=== PATIENT | female | born 1935 | race Caucasian/White ===

== ENCOUNTER → 2024-10-05 | Outpatient (CLI) | payer MEDICARE, BC, SELFPAY ==
[2024-10-05 12:32] LABS: Collection Type, Urine Clean Catch
[2024-10-05 13:59] LABS: Basophils % (Auto) 1 % (0-2.5); Eosinophils # (Auto) 0.1 Thou/mm3 (0.0-0.5); Eosinophils % (Auto) 2 % (0-10); Hematocrit 42.8 % (36.0-46.0); Hemoglobin 13.6 g/dL (12.0-16.0); Immature Granulocytes % (Auto) 0 % (0-0); Immature Granulocytes Auto 0.01 Thou/mm3 (0.00-0.00); Lymphocytes # (Auto) 1.6 Thou/mm3 (1.0-4.8); Lymphocytes % (Auto) 31 % (10-50); Mean Corpuscular HGB Conc 31.8 g/dl (31.0-37.0); Mean Corpuscular Hemoglobin 27.8 pg (25.0-35.0); Mean Corpuscular Volume 88 fL (80-100); Monocytes # (Auto) 0.5 Thou/mm3 (0.0-0.8); Monocytes % (Auto) 9 % (0-12); Neutrophils % (Auto) 57 % (37-80); Nucleated Red Blood Cell % 0 /100 WBC (0); Platelet Count 191 Thou/mm3 (140-440); RDW Standard Deviation 41.8 fL (36.4-46.3); Red Blood Count 4.89 Miln/mm3 (4.00-5.20); White Blood Count 5.2 Thou/mm3 (3.6-11.0)
[2024-10-05 14:02] LABS: Bilirubin,Urine Negative (Negative); Blood,Urine Negative (Negative); Clarity,Urine Clear (Clear/Hazy); Color,Urine Lt-Yellow (Lt Yel-Yel); Culture Indicated,Urine Not Indicated; Glucose, Urine Negative (Negative); Ketones,Urine Trace (Negative); Leukocyte Esterase,Urine Negative (Negative); Nitrite,Urine Negative (Negative); PH,Urine 6.5 (5.0-7.0); Protein,Urine Negative (Neg - Trace); RBC,Urine 3 /hpf (0-3); Specific Gravity,Urine 1.018 (1.001-1.035); Squamous Epithelial Cell,Urine < 1 /hpf (0-5); Urobilinogen,Urine Negative mg/dL (0.0-1.0); WBC,Urine 1 /hpf (0-5)
[2024-10-05 14:12] LABS: Vitamin B12 273 pg/mL (211-911)
[2024-10-05 14:21] LABS: Alanine Aminotransferase 18 U/L (10-49); Albumin, Serum 4.4 gm/dL (3.4-4.8); Albumin/Globulin Ratio 1.8 (1.2-2.2); Alkaline Phosphatase 84 U/L (46-116); Anion Gap 5 (7-16); Aspartate Amino Transferase 27 U/L (0-34); BUN/Creatinine Ratio 15 Ratio (12-20); Bilirubin,Total 0.8 mg/dL (0.3-1.2); Blood Urea Nitrogen 17 mg/dL (9-23); Carbon Dioxide 30.7 mMol/L (20.0-31.0); Cardiac Risk Estimate 1.8 RATIO (3.7-5.6); Chloride 102 mMol/L (98-107); Cholesterol 132 mg/dL (132-200); Creatinine (Component) 1.1 mg/dL (0.6-1.3); Globulin 2.5 gm/dL (2.3-3.5); Glucose 87 mg/dL (74-106); HDL Cholesterol 72 mg/dL (40-60); LDL Cholesterol,Calculated 48 mg/dL (0-130); Osmolality,Calculated 276 (275-295); Phosphorous 3.6 mg/dL (2.4-5.1); Potassium 4.9 mMol/L (3.4-5.1); Sodium 138 mMol/L (136-145); Thyroid Stimulating Hormone 2.32 uIU/mL (0.55-4.78); Total Protein 6.9 gm/dL (5.7-8.2); Triglycerides 62 mg/dL (30-150); eGFR 49 See Note
[2024-10-05 15:24] LABS: Glucose Estimated Average 105 mg/dL (80-131); Hemoglobin A1C 5.3 % Hgb (4.8-6.0)
== END | disposition home or self-care (01) ==
LOC: COPL 11:29
PROVIDERS: PCP Registered Nurse; Referring Provider Internal Medicine; Visit Provider Internal Medicine
DX: Z00.00 Encounter for general adult medical examination without abnormal findings (principal); I12.9 Hypertensive chronic kidney disease with stage 1 through stage 4 chronic kidney disease, or unspecified chronic kidney disease; N18.31 Chronic kidney disease, stage 3a
CPT/HCPCS: 36415; 80053; 80061; 81001; 82306; 82607; 83036; 84100; 84443; 85025

== ENCOUNTER → 2025-01-25 | Outpatient (CLI) | payer MEDICARE, BC, SELFPAY ==
[2025-01-25 13:14] LABS: Albumin, Serum 4.2 gm/dL (3.4-4.8); Anion Gap 7 (7-16); BUN/Creatinine Ratio 18 Ratio (12-20); Blood Urea Nitrogen 18 mg/dL (9-23); Calcium 9.6 mg/dL (8.3-10.6); Calcium (Corrected) 9.6 mg/dL (8.5-10.1); Carbon Dioxide 29.1 mMol/L (20.0-31.0); Chloride 103 mMol/L (98-107); Glucose 93 mg/dL (74-106); Osmolality,Calculated 279 (275-295); Phosphorous 3.3 mg/dL (2.4-5.1); Potassium 4.7 mMol/L (3.4-5.1); Sodium 139 mMol/L (136-145); eGFR 54 See Note
== END | disposition home or self-care (01) ==
PROVIDERS: PCP Family Medicine; Referring Provider Internal Medicine; Visit Provider Internal Medicine
DX: I12.9 Hypertensive chronic kidney disease with stage 1 through stage 4 chronic kidney disease, or unspecified chronic kidney disease (principal); N18.31 Chronic kidney disease, stage 3a
CPT/HCPCS: 36415; 80069

== ENCOUNTER 2025-04-26 06:17 | Inpatient (IN) | payer MEDICARE, BC, SELFPAY ==
[2025-04-26] VITALS (13 sets, daily range): BP systolic 123–182; BP diastolic 67–95; PULSE 59–111; RESP 16–21; TEMP 36.3–37; O2SAT 88–99; BMI 24.5; BMI 25.3
--- NOTE | 2025-04-26 06:59 | XR_ITS ---
Examination: CT pelvis without intravenous contrast. 2-D sagittal and coronal reconstructions. Date and time of exam:April 26, 2025 0856 hours INDICATIONS: Patient fell today with injury to both hips, bilateral hip pain CTDI: vol (mGy) :6.36 DLP: (mGycm) : 235 Technique: Multiple 3 mm axial sections of the pelvis have been obtained with the 64 slice high resolution scanner. 2-D sagittal and coronal reconstructions. Low dose protocols were performed. One or more of the following dose reduction techniques were used; automated exposure control, adjustment of the mA and/or KV according to patient size, use of iterative reconstruction technique. Findings: Prominent osteopenia Sacral segments intact Iliac bones acetabular regions intact Anterior rami intact Acute mildly impacted left subcapital hip fracture Fracture lines are also evident involving the lower femoral neck and partly intertrochanteric region, axial image 67 Right hip intact No pelvic hematoma Urinary bladder intact IMPRESSION: Complex left hip fracture, left subcapital but also involving the lower femoral neck and partly intertrochanteric
--- NOTE | 2025-04-26 06:59 | EKG_ITS ---
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
--- NOTE | 2025-04-26 06:59 | XR_ITS ---
Examination: AP chest single view Technique one AP portable semiupright chest single view Date and time: April 26, 2025 0739 hours Comparison January 14, 2024 INDICATIONS: Coughing shortness of breath today. FINDINGS: Mild enlargement left ventricle Mild vascular congestion. No lobar pneumonia or pulmonary edema Prominent osteopenia IMPRESSION: Mild enlargement cardiac contour. Mild vascular congestion
[2025-04-26] MEDS: SODIUM CHLORIDE 0.9% 1000 ML 1,000 ML 100 ML IV (07:30)
[2025-04-26] MEDS: ONDANSETRON INJ 2 MG/ML INJ 2 ML 4 MG IVP ×2 (07:30→11:18)
[2025-04-26] MEDS: MORPHINE SULF INJ 10 MG/ML VIAL 4 MG IVP (07:30)
--- NOTE | 2025-04-26 07:42 | EDNOTE_ITS ---
ED Fall Injury RME/HPI General Chief Complaint: Fall Stated Complaint: FALL Time Seen by Provider: 04/26/25 06:27 Arrival date/time: 04/26/25 06:17 Limitations: no limitations RME / HPI RME / HPI Narrative: 89 year old female with a known history of mitral and aortic valve regurgitation and hypertension presents to the ED BIBA from home for evaluation of left hip pain following a fall earlier this morning. The patient reports that she was walking outside on gravel when her large dog ran between her legs, causing her to lose balance and fall onto her left side. Immediately experienced pain localized to the left groin and hip, which has been exacerbated with any movement. Denies any other complaints, injuries, or neurological symptoms. Denies head trauma, LOC, dizziness, or weakness. Related Data Home Medications ?Medication ?Instructions ?Recorded ?Confirmed gabapentin 300 mg tablet,extended 600 mg PO QPM 07/20/23 release 24 hr benazepril 20 mg tablet 20 mg PO QDAY 10/19/2207/20 ergocalciferol (vitamin D2) 1,250 50,000 unit PO QMONT H 10/19/22 07/20/23 mcg (50,000 unit) capsule vitamin B complex-vitamin C-folic 1 tab PO QDAY 07/20/23 acid 0.8 mg tablet (Lolly-Sherlyn) metoprolol tartrate 25 mg tablet 25 mg PO QDAY 3 07/20/23 Allergies Allergy/AdvReac Type Severity Reaction Status Date / Time Penicillins Allergy Severe Swelling Verified 11/21/22 09:00 of Lip/Tongue/Throat Review of Systems Review of Systems Systems Reviewed: All systems reviewed, normal except as documented Past Medical History Past Medical History CARDIAC: Positive Cardiac Disorders (LEAKY VALVE), Valvular Heart Disease and Hypertension (TAKES MED) GENITOURINARY: Positive Renal Disease REPRODUCTIVE: Positive Previous Pregnancies (X3) ENT: Positive Cataracts (RIGHT), Retinal Detachment (RIGHT EYE) and Macular Degeneration (RIGHT EYE) OTHER HISTORY: Positive Shingles (11/03), Chicken Pox, Measles and Mumps Family History FAMILY HISTORY: Positive Family Gastrointestinal Problems (FATHER), Family Cancer (SISTER (UTERINE)) and Family Surgery (MOTHER,FATHER) Surgical History SURGICAL: Positive Eye Surgery (RIGHT) and Tonsillectomy Social History SMOKING STATUS: Never smoker ED Exam General Limitations: Present no limitations General appearance: Present alert and other (appears to be in pain ) Head Head exam: Present atraumatic, normocephalic and normal inspection Eye Eye exam: Present normal appearance, PERRL and EOMI ENT ENT exam: Present normal exam, normal oropharynx and mucous membranes moist Neck Neck exam: Present normal inspection, full ROM and trachea midline Chest Chest inspection: Present normal inspection and symmetric chest wall rise Respiratory Respiratory exam: Present normal lung sounds bilaterally Cardiovascular Cardiovascular exam: Present regular rate, normal rhythm and normal heart sounds Abdominal Exam Abdominal exam: Present soft and normal bowel sounds Extremities Exam Extremities exam: Present other (left inguinal pain on palpation, cannot rotate externally, no shortening of the leg ) Back Exam Back exam: Present normal inspection and full ROM Neurological Exam Neurological exam: Present alert, oriented X3 and CN II-XII intact Psychiatric Psychiatric exam: Present normal affect and normal mood Skin Skin exam: Present warm, dry, intact and normal color Course Quality Measures none Orders Category Date Time Status COVID-19 Screening Questionnaire NOW Care 04/26/25 10:58 Active Teacher Education Director NOW Care 04/26/25 06:59 Completed Teacher Education Director Q4H START 00 Care 04/26/25 06:40 Active Continuous Pulse Oximetry NOW Care 04/26/25 06:59 Completed Decision to Admit X1 Care 04/26/25 10:57 Active EKG (ED ONLY) *Do not use* NOW Care 04/26/25 06:59 Completed In and Out Catheter X1 Care 04/26/25 07:49 Completed Insert IV NOW Care 04/26/25 06:59 Active Wound Care [Wound Care] NOW Care 04/26/25 06:41 Active Consult to Orthopedic Stat Cons 04/26/25 10:[address] pelvis wo con Stat Exams 04/26/25 06:59 Completed EKG (ED Only) Stat Exams 04/26/25 06:59 Draft XR chest 1V portable Stat Exams 04/26/25 06:59 Completed XR hip LT w pelvis 2-3V Stat Exams 04/26/25 10:51 Ordered CBC Stat Lab 04/26/25 07:55 Completed Comprehensive Metabolic Panel Stat Lab 04/26/25 08:41 Completed Partial Thromboplastin Time Stat Lab 04/26/25 08:41 Completed Prothrombin Time with INR Stat Lab 04/26/25 08:41 Completed Troponin I Stat Lab 04/26/25 08:41 Completed Urinalysis Stat Lab 04/26/25 08:00 Completed Morphine Inj Med 04/26/25 06:59 Discontinued 4 mg IVP X1 ONE Ondansetron Inj [Zofran Inj] Med 04/26/25 06:59 Discontinued 4 mg IVP X1 ONE Sodium Chloride 0.9% 1000 ml [Ns] 1,000 ml Med 04/26/25 06:59 Active IV 100 mls/hr Oxygen Delivery NOW RT 04/26/25 10:21 Active Vital Signs Vital signs: Vital Signs Temperature 98.6 F 04/26/25 06:39 Pulse Rate 62 04/26/25 06:39 Respiratory Rate 18 04/26/25 06:39 Blood Pressure 182/86 H 04/26/25 06:39 Pulse Oximetry (%) 94 L 04/26/25 06:39 Oxygen Delivery Method Room Air 04/26/25 06:39 Pulse ox is 94% on room air which is adequate. Fall MDM Narrative MDM Narrative:: Brigitte Russell am scribing for and in the presence of Dr. Hines. Patient data External records reviewed:: [facility] previous records (I reviewed H&P on 11/21/2022 ) and EMS form Clinical information provided by:: patient and EMS Social determinants that could affect healthcare access:: none Patient has the following chronic illnesses:: HTN, mitral and aortic valve regurgitation How is presenting disease/condition affected by chronic disease/condition?: uneffected by Evaluation data The following diagnostics were reviewed and interpreted by me:: lab results, radiology exam(s) and EKG tracing(s) (EKG 04/26/2025 @ 07:15 AM. Sinus bradycardia with occasional PVC's, left axis deviation, minimal ST depression, HR 59, WA 164ms, QRS 106ms, QT/QTc 419/419ms. ) Lab and/or radiology exams considered but not ordered:: None Interpretation Summary: Ordering Physician: Austin Hines MD Date of Service: 04/26/25 Procedure(s): XR chest 1V portable Accession Number(s): [id number] cc: Austin Hines MD; Stephen Lance MD; Omar Yang MD~ Examination: AP chest single view Technique one AP portable semiupright chest single view Date and time: April 26, 2025 0739 hours Comparison January 14, 2024 INDICATIONS: Coughing shortness of breath today. FINDINGS: Mild enlargement left ventricle Mild vascular congestion. No lobar pneumonia or pulmonary edema Prominent osteopenia IMPRESSION: Mild enlargement cardiac contour. Mild vascular congestion Dictated By: Stephen Lance MD Signed By: <Electronically signed by Stephen Lance MD in OV> 04/26/25 0905 Ordering Physician: Austin Hines MD Date of Service: 04/26/25 Procedure(s): CT pelvis wo [facility] Accession Number(s): [id number] cc: Austin Hines MD; Stephen Lance MD; Omar Yang MD~ Examination: CT pelvis without intravenous contrast. 2-D sagittal and coronal reconstructions. Date and time of exam:April 26, 2025 0856 hours INDICATIONS: Patient fell today with injury to both hips, bilateral hip pain CTDI: vol (mGy) :6.36 DLP: (mGycm) : 235 Technique: Multiple 3 mm axial sections of the pelvis have been obtained with the 64 slice high resolution scanner. 2-D sagittal and coronal reconstructions. Low dose protocols were performed. One or more of the following dose reduction techniques were used; automated exposure control, adjustment of the mA and/or KV according to patient size, use of iterative reconstruction technique. Findings: Prominent osteopenia Sacral segments intact Iliac bones acetabular regions intact Anterior rami intact Acute mildly impacted left subcapital hip fracture Fracture lines are also evident involving the lower femoral neck and partly intertrochanteric region, axial image 67 Right hip intact No pelvic hematoma Urinary bladder intact IMPRESSION: Complex left hip fracture, left subcapital but also involving the lower femoral neck and partly intertrochanteric Dictated By: Stephen Lance MD Signed By: <Electronically signed by Stephen Lance MD in OV> 04/26/25 0918 Medications / Prescriptions Medications or Prescriptions considered but not ordered:: None Medication administrations:: Medication Administration History Sodium Chloride (Ns) 1,000 mls @ 100 mls/hr IV .Q10H ONE Stop: 04/26/25 16:58 Last Admin: 04/26/25 07:30 Dose: 100 mls/hr Documented By: LESLEY Discontinued Medications Morphine Sulfate (Morphine Sulf Inj 10 Mg/Ml Vial) 4 mg IVP X1 ONE Stop: 04/26/25 07:00 Last Admin: 04/26/25 07:30 Dose: 4 mg Documented By: LESLEY Ondansetron HCl (Ondansetron Inj 2 Mg/Ml Inj 2 Ml) 4 mg IVP X1 ONE; Protocol Stop: 04/26/25 07:00 Last Admin: 04/26/25 07:30 Dose: 4 mg Documented By: LESLEY See above Consultations Consultation(s) initiated? (list below): Yes Consultation #1 (Physician, Specialty, Details): I spoke with ortho Dr. Anders. Discussed patient?s HPI, PMHx, lab and radiology results. Treatment plan was discussed. Agrees to consult. Time: 10:35 Consultation #2 (Physician, Specialty, Details): I spoke with resident working with Dr. Ordoñez. Discussed patients PMHx, HPI, ED course, exam findings, labs, and radiology results. The hospitalist agree to accept the patient for admission. Time: 10:56 Diagnosis Fall Differential Diagnosis: syncope and other (hip dislocation, hip fracture, pelvic fracture ) Most likely diagnosis given after review of the tests above:: Left hip fracture Admission Indicated Admission indicated?: indicated Admission Request Was there a request for admission?: Yes Admission Attestation Admission request attestation: Discussed case with [] from Hospitalist service regarding admission. Discussed patients ED course, exam findings, labs, and radiology results. The Hospitalist [agrees,declines] to accept the patient for admission. Disposition Plan Disposition Plan: Admit Discharge Plan Plan Patient Disposition: Admit Acute Care w/in Hospital Prescriptions/Referrals Prescriptions/Med Rec: No Action gabapentin 300 mg Tablet Extended Release 24 Hr 600 mg PO QPM benazepril 20 mg tablet 20 mg PO QDAY Patient Comments: TAKE 1 TABLET BY MOUTH EVERY DAY Lolly-Sherlyn 0.8 mg tablet 1 tab PO QDAY Patient Comments: TAKE 1 TABLET BY MOUTH EVERY DAY ergocalciferol (vitamin D2) 1,250 mcg (50,000 unit) capsule 50,000 unit PO QMONTH Patient Comments: TAKE 1 CAPSULE BY MOUTH ONCE A MONTH metoprolol tartrate 25 mg Tablet 25 mg PO QDAY Referrals: Omar Yang MD [Primary Care Provider] - In 1 week Problem List Clinical Impression: Fracture of left hip Patient/Caregiver Discharge Instructions Print Language: Uzbek Stand Alone Forms: Mari Award Info., Patient Portal Info Letter
[2025-04-26 08:09] LABS: Collection Type, Urine Clean Catch
[2025-04-26 08:30] LABS: Basophils % (Auto) 0 % (0-2.5); Eosinophils # (Auto) 0.1 Thou/mm3 (0.0-0.5); Eosinophils % (Auto) 1 % (0-10); Hematocrit 41.9 % (36.0-46.0); Hemoglobin 13.8 g/dL (12.0-16.0); Immature Granulocytes % (Auto) 1 % (0-0); Immature Granulocytes Auto 0.06 Thou/mm3 (0.00-0.00); Lymphocytes # (Auto) 1.5 Thou/mm3 (1.0-4.8); Lymphocytes % (Auto) 19 % (10-50); Mean Corpuscular HGB Conc 32.9 g/dl (31.0-37.0); Mean Corpuscular Hemoglobin 28.1 pg (25.0-35.0); Mean Corpuscular Volume 85 fL (80-100); Monocytes # (Auto) 0.5 Thou/mm3 (0.0-0.8); Monocytes % (Auto) 6 % (0-12); Neutrophils # (Auto) 5.7 Thou/mm3 (1.8-7.7); Neutrophils % (Auto) 73 % (37-80); Nucleated Red Blood Cell % 0 /100 WBC (0); Platelet Count 146 Thou/mm3 (140-440); RDW Standard Deviation 41.2 fL (36.4-46.3); Red Blood Count 4.91 Miln/mm3 (4.00-5.20); White Blood Count 7.8 Thou/mm3 (3.6-11.0)
[2025-04-26 09:02] LABS: Bilirubin,Urine Negative (Negative); Blood,Urine Negative (Negative); Clarity,Urine Clear (Clear/Hazy); Color,Urine Colorless (Lt Yel-Yel); Glucose, Urine Negative (Negative); Ketones,Urine Negative (Negative); Leukocyte Esterase,Urine Positive (Negative); Nitrite,Urine Negative (Negative); PH,Urine 6.5 (5.0-7.0); Protein,Urine Negative (Neg - Trace); RBC,Urine 5 /hpf (0-3); Specific Gravity,Urine 1.005 (1.001-1.035); Squamous Epithelial Cell,Urine 2 /hpf (0-5); Transitional Epi Cells,Urine 2 /hpf (0-5); Urobilinogen,Urine Negative mg/dL (0.0-1.0); WBC,Urine 6 /hpf (0-5)
[2025-04-26 09:03] LABS: INR 1.1 (0.9-1.3); Partial Thromboplastin Time 29.3 Seconds (22.0-36.0); Prothrombin Time 11.6 Seconds (9.0-12.2)
[2025-04-26 09:08] LABS: Alanine Aminotransferase 20 U/L (10-49); Albumin, Serum 4.1 gm/dL (3.4-4.8); Albumin/Globulin Ratio 2.1 (1.2-2.2); Alkaline Phosphatase 74 U/L (46-116); Anion Gap 10 (7-16); BUN/Creatinine Ratio 22 Ratio (12-20); Bilirubin,Total 0.8 mg/dL (0.3-1.2); Blood Urea Nitrogen 20 mg/dL (9-23); Calcium 9.3 mg/dL (8.3-10.6); Calcium (Corrected) 9.3 mg/dL (8.5-10.1); Carbon Dioxide 27.5 mMol/L (20.0-31.0); Chloride 103 mMol/L (98-107); Creatinine (Component) 0.9 mg/dL (0.6-1.3); Estimated Creatinine Clearance 35.7 mL/min (>60); Glucose 98 mg/dL (74-106); Osmolality,Calculated 282 (275-295); Potassium 3.7 mMol/L (3.4-5.1); Sodium 140 mMol/L (136-145); Total Protein 6.1 gm/dL (5.7-8.2); Troponin I < 0.020 ng/mL (0.0-0.045); eGFR > 60 See Note
--- NOTE | 2025-04-26 10:51 | XR_ITS ---
Examination:Left hip AP, lateral, AP pelvis 3 views Technique: Hip AP lateral, AP pelvis, 3 views Exam date and time:April 26, 2025 1117 hours INDICATIONS: Patient fell today with injury to left hip, left hip pain FINDINGS: Prominent osteopenia Acute left subcapital hip fracture, please see the CT pelvis report this a.m. IMPRESSION: Acute left subcapital hip fracture, please see the CT pelvis report this morning.
[2025-04-26] MEDS: HYDROmorphone INJ 2 MG/ML VIAL 0.5 MG IVP ×3 (11:19→20:06)
--- NOTE | 2025-04-26 11:49 | PD.RESHP ---
Documentation for date of: 04/26/25 [facility] History of Present Illness Chief complaint: Fall History of present illness: Ms. Mcdaniel is a 89-year-old female with past medical history of hypertension, hyperlipidemia, mild to moderate mitral valve and aortic valve regurgitation (follows Dr Brett Pereyra) and neuropathic pain who presented to [facility] emergency department with a chief complaint of mechanical fall. Patient's [id number] at bedside assisting in providing history, according to the patient she had a fall earlier this morning, reports she was walking outside on gravel when her large dog ran between her legs causing her to lose balance and fall onto her left side. Patient immediately experienced pain localized to the left groin and hip which exacerbated with movement. Patient currently complains of 10/10 pain left hip exacerbated by movement. Patient denies any dizziness, presyncopal symptoms prior to the fall and loss of consciousness. Patient reports following outpatient with primary care physician Dr. 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 Aldana for kidney function monitoring. Patient otherwise has no current complaints, denies any head trauma. ED Course: ED Vitals: On presentation in ED blood pressure 182/86, heart rate 62, respiratory rate 18, temp 98.6, O2 sat 94 on room air ED Labs: ED labs pertinent for creatinine clearance 35.7, globulin 2.0. Urinalysis shows leukocyte esterase positive, RBC 5, WBC 6 ED Imaging: Chest x-ray in ED shows mild enlargement cardiac contour, mild vascular congestion. Pelvis CT shows complex left hip fracture, left subcapital but also involving lower femoral neck and partly intertrochanteric. Hip and pelvis x-ray shows acute left subcapital hip fracture ED Treatment: Patient was given maintenance fluids sodium chloride, morphine 4 mg x 1, Zofran 4 mg x 2, Dilaudid 0.5 mg x 1 in the emergency department Review of Systems Review of Systems Narrative Review of Systems: ROS: -CONSTITUTIONAL: Denies weight loss, fever and chills. -HEENT: Denies changes in vision and hearing. -RESPIRATORY: Denies SOB and cough. -CV: Denies palpitations and Chest Pain. -GI: Denies abdominal pain, nausea, vomiting,constipation and diarrhea. -: Denies dysuria and urinary frequency. -MSK: Left hip pain. -SKIN: Denies rash and pruritus. -NEUROLOGICAL: Denies headache and syncope. -PSYCHIATRIC: Denies recent changes in mood. Denies anxiety and depression. Past Medical History Past Medical History Comments PMH COMMENT: PMH: Positive for hypertension, hyperlipidemia, mild to moderate mitral valve and aortic valve regurgitation (follows Dr Brett Pereyra) and neuropathic pain PSHx: Positive for angiogram, Right ear mass resection and right leg surgery. 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 Conversational and non-toxic appearing. HEENT: Normocephalic, atraumatic, mucous membranes moist. Heart: Regular rate and rhythm, positive murmur in aortic area. Lungs: Clear to auscultation with no wheezing or crackles. Abdomen: Soft, nondistended, nontender, positive bowel sounds. ?No guarding or rebound tenderness. Neurologic: Alert and oriented x3, no gross neurological deficit, and patient able to move all 4 extremities. Extremities: No edema. Left extremity shorter than right, externally rotated. Skin: No rash or ecchymoses. Results: Labs 04/26/25 07:55 04/26/25 08:41 Labs: Short CBC 04/26/25 Range/Units 07:55 WBC 7.8 (3.6-11.0) Thou/mm3 Hgb 13.8 (12.0-16.0) g/dL Hct 41.9 (36.0-46.0) % Plt Count 146 (140-440) Thou/mm3 BMP 04/26/25 08:41 Sodium 140 Potassium 3.7 Chloride 103 Carbon Dioxide 27.5 BUN 20 Creatinine 0.9 Glucose 98 Calcium 9.3 Cardiac Enzymes 04/26/25 Range/Units 08:41 Troponin I < 0.020 (0.0-0.045) ng/mL Liver Function 04/26/25 Range/Units 08:41 Total Bilirubin 0.8 (0.3-1.2) mg/dL ALT 20 (10-49) U/L Alkaline Phosphatase 74 (46-116) U/L Albumin 4.1 (3.4-4.8) gm/dL Urine 04/26/25 Range/Units 08:00 Urine Color Colorless A (Lt Yel-Yel) Urine Clarity Clear (Clear/Hazy) Urine pH 6.5 (5.0-7.0) Ur Specific [place] 1.005 (1.001-1.035) Urine Protein Negative (Neg - Trace) Urine Glucose (UA) Negative (Negative) Quality Measures Quality Measures none Advance care planning discussed with:: patient Medications Home Medications and Allergies Home Medications ?Medication ?Instructions ?Recorded ?Confirmed ?Type gabapentin 300 mg tablet,extended 600 mg PO QPM 10/31/18 04/26/25 History release 24 hr vitamin B complex-vitamin C-folic 1 tab PO QDAY 10/19/22 04/26/25 History acid 0.8 mg tablet (Lolly-Sherlyn) Allergies Allergy/AdvReac Type Severity Reaction Status Date / Time Penicillins Allergy Severe Swelling Verified 11/21/22 09:00 of Lip/Tongue/Throat Visit Medications Acetaminophen (Acetaminophen 325 Mg Tablet) 650 mg PO Q6H PRN PRN Reason: Pain (1-3) & Fever >100.4 Stop: 05/26/25 11:39 Hydrocodone Bitart/Acetaminophen (Hydrocodone/Apap 5/325 Tablet) 1 tab PO Q4HR PRN PRN Reason: PAIN SCALE 4-6 (Moderate Stop: 05/01/25 11:39 Gabapentin (Gabapentin 300 Mg Capsule) 300 mg PO HS ELI Stop: 05/26/25 20:59 Heparin Sodium (Porcine) (Heparin Sod Inj 5000 Unit/Ml Vial) 5,000 unit SC Q12H ELI Stop: 05/10/25 11:44 Hydromorphone HCl (Hydromorphone Inj 2 Mg/Ml Vial) 0.5 mg IVP Q4H PRN PRN Reason: PAIN SCALE 7-10 (Severe Stop: 05/01/25 11:39 Ondansetron HCl (Ondansetron Inj 2 Mg/Ml Inj 2 Ml) 4 mg IVP Q6H PRN; Protocol PRN Reason: NAUSEA OR VOMITING Stop: 05/26/25 11:39 Sennosides (Senna Tablet) 1 tab PO QDAY ELI; Protocol Stop: 05/27/25 08:59 Discontinued Medications Hydromorphone HCl (Hydromorphone Inj 2 Mg/Ml Vial) 0.5 mg IVP X1 ONE Stop: 04/26/25 11:10 Last Admin: 04/26/25 11:19 Dose: 0.5 mg Sodium Chloride (Ns) 1,000 mls @ 100 mls/hr IV .Q10H ONE Stop: 04/26/25 16:58 Last Admin: 04/26/25 07:30 Dose: 100 mls/hr Morphine Sulfate (Morphine Sulf Inj 10 Mg/Ml Vial) 4 mg IVP X1 ONE Stop: 04/26/25 07:00 Last Admin: 04/26/25 07:30 Dose: 4 mg Ondansetron HCl (Ondansetron Inj 2 Mg/Ml Inj 2 Ml) 4 mg IVP X1 ONE; Protocol Stop: 04/26/25 07:00 Last Admin: 04/26/25 07:30 Dose: 4 mg Ondansetron HCl (Ondansetron Inj 2 Mg/Ml Inj 2 Ml) 4 mg IVP X1 ONE; Protocol Stop: 04/26/25 11:10 Last Admin: 04/26/25 11:18 Dose: 4 mg Assessment & Plan Plan Assessment and plan: Summary: Ms. Mcdaniel is a 89-year-old female with past medical history of hypertension, hyperlipidemia, mild to moderate mitral valve and aortic valve regurgitation (follows Dr Brett Pereyra) and neuropathic pain who presented to [facility] emergency department with a chief complaint of mechanical fall. Patient admitted for further management of left hip fracture. #Left subcapital femoral neck fracture #Ground-level mechanical fall Patient reports she was walking outside on gravel when her large dog ran between her legs causing her to lose balance and fall onto her left side. Patient denies any dizziness, weakness, loss of consciousness and head trauma. Complains of left hip pain, Pelvis CT shows complex left hip fracture, left subcapital but also involving lower femoral neck and partly intertrochanteric. Hip and pelvis x-ray shows acute left subcapital hip fracture. RCRI score 1 point, chest x-ray findings show pulmonary vascularity redistribution, 6% risk of major cardiac event. METs greater than 4 Plan: - Pain management, Tylenol/[place]/Dilaudid as needed for pain - Consulted orthopedics, appreciate recommendations - Cardiology consulted for cardiac clearance, ordered echocardiogram - Zofran as needed for nausea/vomiting - Follow CBC CMP in a.m. #Hypertension #Hyperlipidemia #Mild to moderate mitral valve/aortic valve regurgitation Per chart review patient with history of hypertension hyperlipidemia, not on any medication for management. Follows Dr Brett Pereyra. Cardiac Cath. report from January 2023 shows minimal plaque of 10 to 20% stenosis in proximal RCA. Left ventricular ejection fraction EF 60 to 65%, mild elevation of LVEDP Plan: - Maintain adequate pain control - Cardiology consulted for cardiac clearance - Ordered echocardiogram # Chronic neuropathic pain Patient reports taking gabapentin 600 mg every at night, pending med reconciliation - Started on gabapentin 300 mg at bedtime #Prominent osteopenia Noted on CT pelvis, patient will likely supplement from calcium and vitamin D supplementation. Will consider discharging patient on same, recommend DEXA scan outpatient and bisphosphonates. DVT prophylaxis: Heparin every 12 hours GI prophylaxis: Not indicated Diet: Cardiac, vegetarian Lines: Peripheral IV Code status: Full code Case discussed with Attending Dr. Ordoñez. Rigoberto Huggins PGY1 Disclaimer: This note was dictated by speech recognition. Minor errors in api architect may be present due to voice recognition software. Attending Provider Attestation/Addendum I attest that I was physically present for the evaluation, physical examination, lab and imaging review of the patient with the residents. I discussed the case with the residents and agree with the findings and plans of care as documented above. Patient is an 89 years old female with past medical history of hypertension, hyperlipidemia, mild to moderate mitral valve and aortic valve regurgitation and neuropathic pain who presented to the ED following a mechanical fall. She was found to have acute left subcapital hip fracture, complex left hip fracture, lower femoral neck and partially intertrochanteric fracture as per CT pelvis. Vital signs were stable except for hypertension. Lab results were nonconcerning as well. After examination of the patient and review of the clinical data I feel that this patient needs admission to the hospital for further treatment/evaluation of complex left hip fracture, left subcapital hip fracture following a ground-level fall. Orthopedics on board. Deb Ordoñez MD
[2025-04-26] MEDS: HEPARIN SOD INJ 5000 UNIT/ML VIAL SC (12:05)
--- NOTE | 2025-04-26 13:12 | ECHO_ITS ---
Transthoracic Echo Report Ht (in): 61 Wt (lb): 130 Exam Location: Echo Lab Status: Inpatient Preventive Maintenance Engineer: Yoly Jefferson Indications: Procedure Performed: BP: 137 / 77 HR: 109 Technical Quality: Adequate MEASUREMENTS (Male / Female) Normal Values 2D ECHO LV Diastolic Diameter PLAX 4.6 cm 4.2 - 5.9 / 3.9 - 5.3 cm LV Systolic Diameter PLAX 3.3 cm IVS Diastolic Thickness 0.8 cm 0.6 - 1.0 / 0.6 - 0.9 cm LVPW Diastolic Thickness 0.5 cm 0.6 - 1.0 / 0.6 - 0.9 cm LV Relative Wall Thickness 0.3 LVOT Diameter 1.7 cm LA Volume Index 52.6 cm?/m? 16 - 28 cm?/m? Ascending Aorta Diameter 3.0 cm DOPPLER AV Peak Velocity 163.0 cm/s AV Peak Gradient 10.6 mmHg AI Peak Velocity 373.0 cm/s AI Peak Gradient 55.7 mmHg AI Pressure Half Time 545.0 ms LVOT Peak Velocity 107.0 cm/s LVOT Peak Gradient 4.6 mmHg AV Area Cont Eq pk 1.5 cm? MV Area PHT 2.9 cm? Mitral E Point Velocity 60.1 cm/s Mitral A Point Velocity 97.0 cm/s Mitral E to A Ratio 0.6 LV E' Lateral Velocity 10.1 cm/s Mitral E to LV E' Lateral Ratio 6.0 LV E' Septal Velocity 6.3 cm/s Mitral E to LV E' Septal Ratio 9.5 TR Peak Velocity 278.5 cm/s TR Peak Gradient 31.0 mmHg PV Peak Velocity 52.0 cm/s PV Peak Gradient 1.1 mmHg FINDINGS Left Ventricle Normal left ventricular size, wall thickness, systolic function with no obvious regional wall motion abnormalities. Normal left ventricular diastolic filling pattern for age. The ejection fraction is visually estimated at 60 %. Right Ventricle The right ventricle is mildly dilated. Right Ventricular function is normal. The estimated right ventricular systolic pressure 31 mmHg. RAP 10mmHg. Left Atrium The left atrium is mildly dilated. Right Atrium The right atrium is moderately dilated. Atrial Septum The interatrial septum appears normal with no evidence of a shunt. Aorta The aorta is normal by two-dimensional, color flow and Doppler interrogation. Mitral Valve The mitral valve is normal by two-dimensional, color flow and Doppler interrogation. There is mild mitrual regurgitation. Aortic Valve The aortic valve is trileaflet and normal by two-dimensional, color flow and Doppler interrogation. There is mild aortic regurgitation. Tricuspid Valve The tricuspid valve is normal by two-dimensional, color flow and Doppler interrogation. There is moderate tricuspid regurgitation. Pulmonic Valve The pulmonic valve is not well visualized. There is no significant pulmonic valve regurgitation. Vessels The pulmonary artery appears normal. The inferior vena cava pulmonary and hepatic veins appear normal. Pericardium The pericardium is normal by two-dimensional imaging. There is no significant pericardial effusion. CONCLUSIONS Indications: AV Regurgitation preop cardiac clearance for surgery Aortic root is normal in dimension. Aortic valve show evidence of mild calcification thickening normal excursions. There is evidence of mild aortic valve regurgitation. Mild enlargement of the right and left atrium. Normal-sized left ventricle with excellent left ventricular systolic function ejection fraction of 60%. Mild mitral regurgitation. Mild tricuspid regurgitation normal PA pressure. Based on excellent left ventricle function low cardiac risk for surgery. Janey Diamond (Electronically Signed) Final Date: 26 April 2025 17:52
[2025-04-26] MEDS: GABAPENTIN 300 MG CAPSULE PO (21:12)
--- NOTE | 2025-04-26 21:45 | PC.NURSE ---
Per groundwater monitoring technician, Pt had multiple sustained episodes of inverted P-wave and heart rate is fluctuating intermittently from high 50s to low 100s. Checked on patient, asymptomatic, resting comfortably in bed and Pt said she is okay. Dr. Buchanan was made aware. advised to continue to monitor patient.
[2025-04-27] VITALS (10 sets, daily range): BP systolic 107–151; BP diastolic 58–98; PULSE 54–109; RESP 18–22; TEMP 36.2–37.2; O2SAT 96–100
[2025-04-27] MEDS: HYDROmorphone INJ 2 MG/ML VIAL 0.5 MG IVP ×4 (00:36→22:00)
--- NOTE | 2025-04-27 01:06 | ESCONSULT_ITS ---
RE: SUDHIR NIELSON : 1935 DATE OF CONSULTATION: 04/26/2025 CONSULTING PHYSICIAN: Hospitalist. REASON FOR CONSULTATION: Evaluation of the patient for cardiac clearance for hip surgery. CHIEF COMPLAINT: Mechanical fall, left hip fracture. HISTORY: The patient is a 89-year-old female with a past medical history of hypertension, hypercholesterolemia, known to me with history of mild to moderate mitral and aortic regurgitation, negative coronary angiogram in the past, neuropathic pain. Came to the hospital because of chief complaint of mechanical fall, suffered a fracture of the left hip. She was walking on gravel, a large dog ran between her legs, causing her to lose her balance and she fell on the left side where she suffered a major fracture. She complains of left hip or groin pain. No chest pain. The patient has had a history of negative workup including angiogram. There was mild to moderate mitral and aortic regurgitation . REVIEW OF SYSTEMS: Otherwise unremarkable. PHYSICAL EXAMINATION: GENERAL: A well-nourished, pleasant, thin-built female, alert, awake, in no acute distress. VITAL SIGNS: Blood pressure is slightly on the high side, 180/86; pulse 62; respirations 16; temperature normal. HEENT: Head is atraumatic and normocephalic. Eyes normal. ENT normal. NECK: Supple. No JVD. Carotid pulse felt, but no bruit. CHEST: Symmetrical. LUNGS: Decreased breath sounds. No rales. HEART: S1, S2 regular. A 1-2/6 systolic murmur heard at the left sternal border, aortic area. ABDOMEN: Thin and soft. EXTREMITIES: No edema. GENITOURINARY AND RECTAL: Not performed. NEUROLOGIC: Normal. IMPRESSION/ASSESSMENT: 1. Acute fracture of the left hip following mechanical fall. 2. 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 RECOMMENDATIONS: Continue medical management. Echocardiogram was obtained. It showed normal left ventricular function, ejection fraction of 70%. Mitral and aortic regurgitation did not significantly worsen. Hence, will be managed medically for now. DT: 23:48:07 TT: 00:21:00 Ref: [id number] - TID: [id number] MTDD
[2025-04-27 05:18] LABS: Basophils % (Auto) 0 % (0-2.5); Eosinophils # (Auto) 0.1 Thou/mm3 (0.0-0.5); Eosinophils % (Auto) 1 % (0-10); Hematocrit 34.8 % (36.0-46.0); Hemoglobin 11.8 g/dL (12.0-16.0); Immature Granulocytes % (Auto) 0 % (0-0); Immature Granulocytes Auto 0.03 Thou/mm3 (0.00-0.00); Lymphocytes % (Auto) 24 % (10-50); Mean Corpuscular HGB Conc 33.9 g/dl (31.0-37.0); Mean Corpuscular Hemoglobin 28.3 pg (25.0-35.0); Mean Corpuscular Volume 84 fL (80-100); Monocytes # (Auto) 0.5 Thou/mm3 (0.0-0.8); Monocytes % (Auto) 7 % (0-12); Neutrophils # (Auto) 5.4 Thou/mm3 (1.8-7.7); Neutrophils % (Auto) 67 % (37-80); Nucleated Red Blood Cell % 0 /100 WBC (0); Platelet Count 109 Thou/mm3 (140-440); RDW Standard Deviation 40.3 fL (36.4-46.3); Red Blood Count 4.17 Miln/mm3 (4.00-5.20); White Blood Count 8.1 Thou/mm3 (3.6-11.0)
[2025-04-27 05:42] LABS: Glucose Estimated Average 103 mg/dL (80-131); Hemoglobin A1C 5.2 % Hgb (4.8-6.0)
[2025-04-27 05:50] LABS: Anion Gap 10 (7-16); BUN/Creatinine Ratio 17 Ratio (12-20); Blood Urea Nitrogen 15 mg/dL (9-23); Calcium 8.4 mg/dL (8.3-10.6); Carbon Dioxide 25.8 mMol/L (20.0-31.0); Cardiac Risk Estimate 1.5 RATIO (3.7-5.6); Chloride 100 mMol/L (98-107); Cholesterol 92 mg/dL (132-200); Creatinine (Component) 0.9 mg/dL (0.6-1.3); Estimated Creatinine Clearance 36.1 mL/min (>60); Glucose 108 mg/dL (74-106); HDL Cholesterol 60 mg/dL (40-60); LDL Cholesterol,Calculated 18 mg/dL (0-130); Magnesium 1.7 mg/dL (1.6-2.6); Osmolality,Calculated 273 (275-295); Phosphorous 2.4 mg/dL (2.4-5.1); Potassium 4.4 mMol/L (3.4-5.1); Sodium 136 mMol/L (136-145); Thyroid Stimulating Hormone 1.86 uIU/mL (0.55-4.78); Triglycerides 69 mg/dL (30-150); eGFR > 60 See Note
[2025-04-27] MEDS: SENNA TABLET 1 TAB PO (08:22)
--- NOTE | 2025-04-27 10:48 | PC.SS ---
Initial assessment: patient is an 89-year old female admitted for acute left hip fracture. Patient was able to confirm demographic information. Physical home address: [address] [place] [address] [place] [address]. Patient indicates she lives alone. Patient informs her son, Leroy Harris as her emergency contact and daughter in law, Donovan Ramires . Patient reports having a rollator walker at home. Denies use of home 02. Patient followed by Omar Yang for primary care. Patient also followed by Dr. Doll. The discharge plan was discussed and patient is receptive to short term SNF. The preferred facility is [facility] in [place]. D/c plan: SNF Next of kin: sonLeroy [phone]
--- NOTE | 2025-04-27 11:04 | PC.SS ---
Addendum entered by KIERAN Vincent 04/27/25 11:06: PASRR completed. Original Note: SS follow up: SNF inquiry sent via weipass. Pending responses.
--- NOTE | 2025-04-27 11:33 | PD.RESPRO ---
Documentation for date of: 04/27/25 Subjective Subjective Interval history: Patient seen and examined at bedside. Patient complains of significant pain, using Dilaudid every 4 hours. DVT prophylaxis discontinued, patient scheduled for surgery in a.m. Patient was cleared by cardiology for cardiac clearance. Echocardiogram 04/26 showed Aortic root is normal in dimension. Aortic valve show evidence of mild calcification thickening normal excursions. There is evidence of mild aortic valve regurgitation. Mild enlargement of the right and left atrium. Normal-sized left ventricle with excellent left ventricular systolic function ejection fraction of 60%. Mild mitral regurgitation. Mild tricuspid regurgitation normal PA pressure. Will keep patient n.p.o. after midnight, scheduled for surgery in the a.m. Exam Vital Signs Temp Pulse Resp BP Pulse Ox O2 Del Method O2 Flow Rate 97.1 F 58 L 18 109/60 97 Nasal Cannula 1.5 04/27/25 08:00 04/27/25 08:00 04/27/25 08:00 04/27/25 08:00 04/27/25 08:00 04/27/25 08:00 04/27/25 08:00 Narrative Exam Physical Exam General: Awake and in no acute distress. Conversational and non-toxic appearing. HEENT: Normocephalic, atraumatic, mucous membranes moist. Heart: Regular rate and rhythm, positive murmur in aortic area. Lungs: Clear to auscultation with no wheezing or crackles. Abdomen: Soft, nondistended, nontender, positive bowel sounds. ?No guarding or rebound tenderness. Neurologic: Alert and oriented x3, no gross neurological deficit, and patient able to move all 4 extremities. Extremities: No edema. Left extremity shorter than right, externally rotated. Skin: No rash or ecchymoses. Objective Labs 04/27/25 04:59 04/27/25 04:59 Labs: Laboratory Results - last 24 hr 04/27/25 04:59 WBC 8.1 RBC 4.17 Hgb 11.8 L D Hct 34.8 L MCV 84 MCH 28.3 MCHC 33.9 RDW Std Deviation 40.3 Plt Count 109 L D Neut % (Auto) 67 Lymph % (Auto) 24 [place] % (Auto) 7 Eos % (Auto) 1 Baso % (Auto) 0 Neut # (Auto) 5.4 Lymph # (Auto) 2.0 [place] # (Auto) 0.5 Eos # (Auto) 0.1 Baso # (Auto) 0.0 Immature Gran # (Auto) 0.03 H Absolute Nucleated RBC 0.00 Immature Gran % 0 Nucleated RBC % 0 Sodium 136 Potassium 4.4 D Chloride 100 Carbon Dioxide 25.8 Anion Gap 10 BUN 15 Creatinine 0.9 Estim Creat Clear Calc 36.1 L eGFR > 60 BUN/Creatinine Ratio [address] Glu mg/dL 103 Hemoglobin A1c 5.2 Calculated Osmolality 273 L Calcium 8.4 Phosphorus 2.4 Magnesium 1.7 Triglycerides 69 Cholesterol 92 L LDL Cholesterol, Calc 18 HDL Cholesterol 60 Cholesterol/HDL Ratio 1.5 L TSH 1.86 Quality Measures Quality Measures none Advance care planning discussed with:: patient Assessment & Plan Assessment Current Active Medications: Generic Name Dose Route Start Last Admin Trade Name Freq PRN Reason Stop Dose Admin Acetaminophen 650 mg 04/26/25 11:40 Acetaminophen 325 Mg Tablet PO 05/26/25 11:39 Q6H PRN Pain (1-3) & Fever >100.4 Hydrocodone Bitart/Acetaminophen 1 tab 04/26/25 11:40 Hydrocodone/Apap 5/325 Tablet PO 05/01/25 11:39 Q4HR PRN PAIN SCALE 4-6 (Moderate Gabapentin 300 mg 04/26/25 21:00 04/26/25 21:12 Gabapentin 300 Mg Capsule PO 05/26/25 20:59 300 mg HS ELI Administration Hydromorphone HCl 0.5 mg 04/26/25 11:40 04/27/25 09:57 Hydromorphone Inj 2 Mg/Ml Vial IVP 05/01/25 11:39 0.5 mg Q4H PRN Administration PAIN SCALE 7-10 (Severe Ondansetron HCl 4 mg 04/26/25 11:40 Ondansetron Inj 2 Mg/Ml Inj 2 Ml IVP 05/26/25 11:39 Q6H PRN NAUSEA OR VOMITING Protocol Sennosides 1 tab 04/27/25 09:00 04/27/25 08:22 Senna Tablet PO 05/27/25 08:59 1 tab QDAY ELI Administration Protocol Plan Assessment and plan: Summary: Ms. Mcdaniel is a 89-year-old female with past medical history of hypertension, hyperlipidemia, mild to moderate mitral valve and aortic valve regurgitation (follows Dr Brett Pereyra) and neuropathic pain who presented to [facility] emergency department with a chief complaint of mechanical fall. Patient admitted for further management of left hip fracture. #Left subcapital femoral neck fracture #Ground-level mechanical fall Patient reports she was walking outside on gravel when her large dog ran between her legs causing her to lose balance and fall onto her left side. Patient denies any dizziness, weakness, loss of consciousness and head trauma. Complains of left hip pain, Pelvis CT shows complex left hip fracture, left subcapital but also involving lower femoral neck and partly intertrochanteric. Hip and pelvis x-ray shows acute left subcapital hip fracture. RCRI score 1 point, chest x-ray findings show pulmonary vascularity redistribution, 6% risk of major cardiac event. METs greater than 4 Patient is here cardiac clearance for surgery. Plan: - Scheduled for surgery in a.m., n.p.o. after midnight - Pain management, Tylenol/[place]/Dilaudid as needed for pain - Consulted orthopedics, appreciate recommendations - Cardiology consulted for cardiac clearance, ordered echocardiogram - Zofran as needed for nausea/vomiting - Follow CBC CMP in a.m. #Hypertension #Hyperlipidemia #Mild to moderate mitral valve/aortic valve regurgitation Per chart review patient with history of hypertension hyperlipidemia, not on any medication for management. Follows Dr Brett Pereyra. Cardiac Cath. report from January 2023 shows minimal plaque of 10 to 20% stenosis in proximal RCA. Left ventricular ejection fraction EF 60 to 65%, mild elevation of LVEDP TSH 1.86, cholesterol 92, LDL 18, HDL 60 A1c 5.2 Echocardiogram 04/26 showed Aortic root is normal in dimension. Aortic valve show evidence of mild calcification thickening normal excursions. There is evidence of mild aortic valve regurgitation. Mild enlargement of the right and left atrium. Normal-sized left ventricle with excellent left ventricular systolic function ejection fraction of 60%. Mild mitral regurgitation. Mild tricuspid regurgitation normal PA pressure. Will keep patient n.p.o. after midnight, scheduled for surgery in the a.m. Plan: - Maintain adequate pain control - Cardiology consulted, appreciate recommendations # Chronic neuropathic pain Patient reports taking gabapentin 600 mg every at night, pending med reconciliation - Continue gabapentin 600 mg at bedtime #Prominent osteopenia Noted on CT pelvis, patient will likely supplement from calcium and vitamin D supplementation. Will consider discharging patient on same, recommend DEXA scan outpatient and bisphosphonates. DVT prophylaxis: Heparin every 12 hours GI prophylaxis: Not indicated Diet: Cardiac, vegetarian Lines: Peripheral IV Code status: Full code Case discussed with Attending Dr. Ordoñez. Rigoberto Huggins PGY1 Disclaimer: This note was dictated by speech recognition. Minor errors in lehr stripper may be present due to voice recognition software. Attending Provider Attestation/Addendum I attest that I was physically present for the evaluation, physical examination, lab and imaging review of the patient with the residents. I discussed the case with the residents and agree with the findings and plans of care as documented above. At bedside today, patient complained of hip pain but states that it is relieved with IV analgesics. Will continue with the analgesics regimen. Has been cleared by cardiology for hip surgery. Vital signs are stable. Lab results are also nonconcerning. Patient is planned for hip surgery tomorrow with orthopedics, DVT prophylaxis on hold. We will keep patient n.p.o. after midnight. Deb Ordoñez MD
[2025-04-27] MEDS: HYDROcodone/APAP 5/325 TABLET 1 TAB PO (13:30)
[2025-04-27] MEDS: GABAPENTIN 300 MG CAPSULE 600 MG PO (20:26)
[2025-04-27] MEDS: SIMETHICONE 80 MG CHEW PO (20:56)
--- NOTE | 2025-04-27 21:01 | PC.NURSE ---
Contact Dr. Buchanan to notify doctor that patient is having trouble emptying her urine. Bladder scanner was performed and a mesurment of 579 was obatained. Followed up with doctor and rescanned patient's bladder. 471 was then obtained after patient tried to urinate. Patient has a purweck on. put in an order for an in and out cathether. Due to the patient mentioning that she is in a lot of pain, the patient refused the in and out cathether. Patient also had a complaint of feeling bloated. Notified Dr. Buchanan and an order of simethicon was obtained.
--- NOTE | 2025-04-27 22:51 | ESPR_ITS ---
RE: SUDHIR MCDANIEL : 1935 DATE OF SERVICE: 04/27/2025 SUBJECTIVE: Sudhir Mcdaniel is sent to us for cardiac assessment. The patient has not had surgery yet, scheduled for surgery tomorrow, admitted to the hospital for fracture of the hip. Cardiac echo showed evidence of normal left ventricular function. The aortic regurgitation unchanged from previous echo. She had a negative cardiac workup in my office clinically. Not having chest pain or shortness of breath. OBJECTIVE: Vital Signs: Blood pressure is 110/70, pulse rate 70, respirations 16, and temperature normal. Neck: Supple. No JVD. Lungs: Decreased breath sounds. No rales or rhonchi. Heart: S1 and S2 regular. Abdomen: Thin and soft. Extremities: Unchanged. ASSESSMENT: Fracture of the hip, requesting surgery clearance. RECOMMENDATIONS: The patient appears to be doing quite well. Given cardiac clearance for surgery as scheduled tomorrow. DT: 21:47:36 TT: 22:49:00 Ref: [id number] - TID: [id number]
[2025-04-28] VITALS (16 sets, daily range): BP systolic 111–146; BP diastolic 54–90; PULSE 54–132; RESP 15–98; TEMP 35.9–37.6; O2SAT 94–99; BMI 25.2
[2025-04-28] MEDS: HYDROmorphone INJ 2 MG/ML VIAL 0.5 MG IVP ×2 (02:02→06:17)
[2025-04-28 06:03] LABS: Basophils % (Auto) 0 % (0-2.5); Eosinophils # (Auto) 0.1 Thou/mm3 (0.0-0.5); Eosinophils % (Auto) 1 % (0-10); Hematocrit 37.3 % (36.0-46.0); Hemoglobin 12.5 g/dL (12.0-16.0); Immature Granulocytes % (Auto) 0 % (0-0); Immature Granulocytes Auto 0.03 Thou/mm3 (0.00-0.00); Lymphocytes # (Auto) 1.7 Thou/mm3 (1.0-4.8); Lymphocytes % (Auto) 14 % (10-50); Mean Corpuscular HGB Conc 33.5 g/dl (31.0-37.0); Mean Corpuscular Hemoglobin 28.5 pg (25.0-35.0); Mean Corpuscular Volume 85 fL (80-100); Monocytes # (Auto) 0.7 Thou/mm3 (0.0-0.8); Monocytes % (Auto) 6 % (0-12); Neutrophils # (Auto) 9.3 Thou/mm3 (1.8-7.7); Neutrophils % (Auto) 79 % (37-80); Nucleated Red Blood Cell % 0 /100 WBC (0); Platelet Count 115 Thou/mm3 (140-440); RDW Standard Deviation 40.4 fL (36.4-46.3); Red Blood Count 4.39 Miln/mm3 (4.00-5.20); White Blood Count 11.8 Thou/mm3 (3.6-11.0)
[2025-04-28 06:21] LABS: Anion Gap 11 (7-16); BUN/Creatinine Ratio 16 Ratio (12-20); Blood Urea Nitrogen 16 mg/dL (9-23); Calcium 8.8 mg/dL (8.3-10.6); Carbon Dioxide 27.7 mMol/L (20.0-31.0); Chloride 100 mMol/L (98-107); Estimated Creatinine Clearance 32.5 mL/min (>60); Glucose 105 mg/dL (74-106); Magnesium 1.5 mg/dL (1.6-2.6); Osmolality,Calculated 278 (275-295); Phosphorous 3.2 mg/dL (2.4-5.1); Potassium 4.2 mMol/L (3.4-5.1); Sodium 139 mMol/L (136-145); eGFR 54 See Note
--- NOTE | 2025-04-28 07:30 | XR_ITS ---
Examination: Left hip 4 views Fluoroscopy Date and time: April 28, 2025 0926 hours INDICATIONS: Acute left hip fractures CT left hip 12/27/2024 operative reduction internal fixation today TECHNIQUE AND FINDINGS: 4 spot fluoroscopic films left hip Operative reduction internal fixation left hip fracture with satisfactory alignment Orthopedic hardware satisfactory position Fluoroscopy 39 seconds radiation dose 4.04 milligray IMPRESSION: Operative reduction internal fixation left hip fracture with satisfactory alignment
--- NOTE | 2025-04-28 09:15 | XR_ITS ---
Examination:Left hip AP, lateral, AP pelvis 3 views Technique: Hip AP lateral, AP pelvis, 3 views Exam date and time:04/28/2025 0930 hours INDICATIONS: Acute left hip fractures 12/27/2024, postop reduction internal fixation hip fractures Findings: Operative reduction internal fixation left hip fractures with anatomic alignment Orthopedic hardware satisfactory position Advanced narrowing hip joints IMPRESSION: Operative reduction internal fixation left hip fractures with anatomic alignment
--- NOTE | 2025-04-28 09:16 | PD.SUROPNT ---
Date of Procedure 04/28/25 Pre Op Diagnosis Subcapital and incomplete intertrochanteric fracture of the left hip Post Op Diagnosis Same Procedure Femur neck system implant. 2 hole plate Synthes implant. Screw size 95 mm Anterior distal screw 19 mm 2 shaft screw sizes 48 and 46 mm Findings Undisplaced subcapital fracture left hip Incomplete undisplaced intertrochanteric fracture Procedure Description Patient was given general endotracheal anesthesia. The nerve block was also given. Was satisfactory anesthesia achieved patient was put on fracture table. The patient was checked under C arm and both AP and lateral and found to be very good. Intravenous antibiotics was given. Pat was thoroughly prepped and draped. C-arm guidance I skin incision was made for the placement of the guidepin. Once satisfactory placement of the pin was made then length of the screw was measured. Decision was made to use size 95 mm long screw. Following that the reaming was done. Appropriate size screw was mounted on the 2 hole plate and was advanced into the neck of the femur up to the subchondral portion of the head of the femur Once satisfactory position was achieved and checked under C arm in both AP lateral then I screw was passed through antirotation on hold. Appropriate size anterior distal screw was placed Following that using the jig 2 screws on the shaft of the femur was placed. Those were sizes 48 and 46 mm Position repeatedly checked under C-arm Wound was irrigated with antibiotic solution every 4 to 5 minutes Closure was done with the 2-0 Vicryl for the soft tissue and the skin was closed with elvira Patient tolerated procedure well. Estimated blood loss 10 to 15 mL. Further management. Patient will be full weight-bear and will be mobilized with the physical therapist. Once patient is stable in mobility and is okayed by physical therapy the patient will be sent to shelter as per her wishes by the patient's family. Anesthesia GETA and other Pathology / specimen None Estimated Blood Loss 15 Surgeon Morales Anders MD Surgical Staff Operation Date: 04/28/25 07:30 Case Staff Anesthesiologist: Raul Watters RNinside solar sales consultant: Charlette Jefferson
--- NOTE | 2025-04-28 09:19 | SUR.PHASEI ---
0919 Patient arrived to recovery resting comfortably in bed, on oxygen 4L via nasal cannula, breathing unlabored, patient heart rate elevated- anesthesia provider aware, no new orders at this time, the remainder of patients vital signs are within normal limits, denies pain, dressing intact to left hip; elvira, adaptic soaked in betadine, fluffs, abd, medipore tape, no bleeding noted, bilateral dorsalis pedis pulses present when palpated, patient has good circulation to left lower extremity; skin color normal for patient and warm to touch, report received from Conchita YANEZ/Marisol YANEZ and Dr. Watters
--- NOTE | 2025-04-28 09:30 | PD.SUROPNT ---
Date of Procedure 04/28/25 Procedure Femur neck system implant. 2 hole plate Synthes implant. Screw size 95 mm Anterior distal screw 19 mm 2 shaft screw sizes 48 and 46 mm Findings see dictation Pathology / specimen None Estimated Blood Loss 15 Surgeon Morales Anders MD Surgical Staff Operation Date: 04/28/25 07:30 Case Staff Anesthesiologist: Raul Watters RNoutside industrial sales representative: Charlette Jefferson
--- NOTE | 2025-04-28 09:44 | SUR.PHASEI ---
0944 XRAY complete per MD order
--- NOTE | 2025-04-28 09:52 | ESCONSULT_ITS ---
RE: SUDHIR NIELSON : 1935 DATE OF CONSULTATION: 04/27/2025 Thank you, Dr. Huggins for asking me to consult on the patient whom I saw on 04/27/2025. HISTORY OF PRESENT ILLNESS: As per history available, the patient fell down and injured her left hip area. The patient was brought to the emergency room on 04/26/2025. X-ray of the left hip revealed subcapital fracture, which was undisplaced. Beside that the patient had incomplete undisplaced fracture of the intertrochanteric region. The patient was admitted for further management. PAST MEDICAL HISTORY: Includes high blood pressure, mitral valve and aortic valve regurgitation and hyperlipidemia. The patient also has neuropathic pain. PAST SURGICAL HISTORY: Right ear surgery, right leg surgery and also underwent angiogram. DRUG HISTORY: The patient takes gabapentin and vitamin B. ALLERGIES: PATIENT IS ALLERGIC TO PENICILLIN. FAMILY HISTORY AND SOCIAL HISTORY: Noncontributory. PHYSICAL EXAMINATION: GENERAL: Normal developed lady. VITAL SIGNS: Pulse is 68 per minute. Blood pressure 138/86. NECK: Soft. Supple. No masses felt. Trachea is centrally placed. CARDIOVASCULAR SYSTEM: First and second heart sounds are normal. No murmur heard. RESPIRATORY SYSTEM: Bilateral vesicular breath sounds. CHEST: Clear. ABDOMEN: Soft. No masses felt. Bowel sounds present. ASSESSMENT AND PLAN: Risks with anesthesia was explained and that includes, but not limited to reaction to anesthetic agents, cardiac arrest and rarely it might be fatal. Risks with surgery includes infection and if that happens the patient may need further surgical pressure. Sometimes rare complication will happen and if that happens that has to be taken care of. Other risks include deep venous thrombosis, pulmonary embolus, which rarely might be fatal. Sometimes there is a stress fracture as well. No guarantees given regarding outcome of the procedure and/or relief of symptoms or functional outcome and the patient and the family are fully aware of that. Accordingly, surgery is booked for 04/28/2025. Appropriate lab work done. DT: :31:56 TT: 09:51:00 Ref: [id number] - TID: [id number]
--- NOTE | 2025-04-28 10:06 | SUR.PHASEI ---
0954 Report given to Lyric YANEZ, patient meets discharge criteria from recovery, awake and alert, on oxygen 2L via nasal cannula, breathing unlabored, vital signs stable, denies pain, dressing intact; no bleeding noted, denies nausea, patient in a bed with a trapeze. 1006 Patient transported via bed to room 363 without incident, PLANT HR MANAGER promptly in patient room, patient resting comfortably with call light in reach when this business writer left patients room
--- NOTE | 2025-04-28 10:43 | ESPR_ITS ---
Documentation for date of: 04/28/25 ANESTHESIA NOTE: Patient had general anesthesia and L fascia iliaca nerve block for L hip repair this morning. Pre-op I saw her yesterday on the floor and again this morning with her son and daughter in law at bedside and spoke with them on the phone yesterday too. She has h/o HTN, chronic back pain, and cleared by cardiology with echo noted. Pre- op, per vitals log, her HR has been fluctuating from 60-110s and she was on NC O2. Intra-op, on arrival to OR, her O2 sat was 82% on room air but she appeared calm without distress, and her HR was 100s fluctuating from sinus to A fib but asymptomatic. She overall did well intra-op, her vitals remained stable except her HR and rhythm had significant variation with frequent fluctuations from from sinus sonia 50-60s to sinus tachy 100s to even brief non-sustained A fib RVR 130s. This fluctuation was not associated with any pain. Otherwise she did well and she was taken to PACU where she did well also, she rested calmly throughout, VSS. I did give her 1.5 mg IV Metoprolol and her HR overall came down to 110s but still had frequent fluctuations from 60s sinus to brief A fib 110s. She was otherwise comfortable, awake, denied chest pain and dyspnea and denied post op L hip pain. I discussed her HR and rhythm with the surgeon, Dr. Pereyra, and her family in the waiting room who reported she was having that pre-op and they are aware. She received 400 cc LR intra-op and was also given 1 gm IV Vancomycin. Raul Watters MD Anesthesia Progress Note Progress Note Most recent Vital Signs: Last Vital Signs Temp 97.8 F 04/28/25 09:49 Pulse 70 04/28/25 09:55 Resp 17 04/28/25 09:55 BP 111/61 04/28/25 09:55 Pulse Ox 95 04/28/25 09:55 O2 Del Method Room Air 04/28/25 08:00 O2 Flow Rate 2 04/28/25 09:55
[2025-04-28] MEDS: SENNA TABLET 1 TAB PO (11:42)
[2025-04-28] MEDS: Magnesium Sulfate 4 GM Ivpb 4 GM/50 ML BAG IV (11:42)
--- NOTE | 2025-04-28 11:42 | ESPR_ITS ---
<Statement entered by Verona Bansal MD - 05/07/25 14:58> I reviewed above note and agree with findings and plans. I have also personally examined the patient with medicine team and went over assessment and plan with medical team including internet marketing strategist and resident physician. Documentation for date of: 04/28/25 Subjective Subjective Interval history: Patient seen and examined at bedside. Patient is status post Femur neck system implant, two hole plate, synthes implant. Referred to physical therapy. Will continue with Pain management and post-op. monitoring. Magnesium repleted. Will continue to monitor patient. Exam Vital Signs Temp Pulse Resp BP Pulse Ox O2 Del Method O2 Flow Rate 97.8 F 70 17 111/61 95 Room Air 2 04/28/25 09:49 04/28/25 09:55 04/28/25 09:55 04/28/25 09:55 04/28/25 09:55 04/28/25 08:00 04/28/25 09:55 Narrative Exam Physical Exam General: Awake and in no acute distress. Conversational and non-toxic appearing. HEENT: Normocephalic, atraumatic, mucous membranes moist. Heart: Regular rate and rhythm, positive murmur in aortic area. Lungs: Clear to auscultation with no wheezing or crackles. Abdomen: Soft, nondistended, nontender, positive bowel sounds. ?No guarding or rebound tenderness. Neurologic: Alert and oriented x3, no gross neurological deficit, and patient able to move all 4 extremities. Extremities: No edema. Left extremity shorter than right, externally rotated. Skin: No rash or ecchymoses. Objective Labs 04/28/25 05:06 04/28/25 05:06 Labs: Laboratory Results - last 24 hr 04/27/25 04/28/25 18:54 05:06 WBC 11.8 H D RBC 4.39 Hgb 12.5 Hct 37.3 MCV 85 MCH 28.5 MCHC 33.5 RDW Std Deviation 40.4 Plt Count 115 L Neut % (Auto) 79 Lymph % (Auto) 14 Labette % (Auto) 6 Eos % (Auto) 1 Baso % (Auto) 0 Neut # (Auto) 9.3 H Lymph # (Auto) 1.7 Labette # (Auto) 0.7 Eos # (Auto) 0.1 Baso # (Auto) 0.0 Immature Gran # (Auto) 0.03 H Absolute Nucleated RBC 0.00 Immature Gran % 0 Nucleated RBC % 0 Sodium 139 Potassium 4.2 Chloride 100 Carbon Dioxide 27.7 Anion Gap 11 BUN 16 Creatinine 1.0 Estim Creat Clear Calc 32.5 L eGFR 54 L BUN/Creatinine Ratio 16 Glucose 105 Calculated Osmolality 278 Calcium 8.8 Phosphorus 3.2 Magnesium 1.5 L Blood Type B Positive Antibody Screen NEGATIVE Crossmatch See Detail Blood Bank Wristband ID Yes Quality Measures Quality Measures none Advance care planning discussed with:: patient Assessment & Plan Assessment Current Active Medications: Generic Name Dose Route Start Last Admin Trade Name Freq PRN Reason Stop Dose Admin Acetaminophen 650 mg 04/26/25 11:40 Acetaminophen 325 Mg Tablet PO 05/26/25 11:39 Q6H PRN Pain (1-3) & Fever >100.4 Hydrocodone Bitart/Acetaminophen 1 tab 04/26/25 11:40 04/27/25 13:30 Hydrocodone/Apap 5/325 Tablet PO 05/01/25 11:39 1 tab Q4HR PRN Administration PAIN SCALE 4-6 (Moderate Gabapentin 600 mg 04/27/25 21:00 04/27/25 20:26 Gabapentin 300 Mg Capsule PO 05/27/25 20:59 600 mg HS ELI Administration Hydromorphone HCl 0.5 mg 04/26/25 11:40 04/28/25 06:17 Hydromorphone Inj 2 Mg/Ml Vial IVP 05/01/25 11:39 0.5 mg Q4H PRN Administration PAIN SCALE 7-10 (Severe Magnesium Sulfate 4 gm in 50 mls @ 12.5 mls/hr 04/28/25 08:04 Magnesium Sulfate Ivpb IV 04/28/25 12:03 X1 ONE Meperidine HCl 12.5 mg 04/28/25 09:02 Meperidine Inj 50 Mg/Ml Vial IVP 05/03/25 09:01 Q5M PRN SHIVERING Midazolam HCl 1 mg 04/28/25 09:02 Midazolam Inj 1 Mg/Ml Vial 2 Ml IVP 04/29/25 09:01 Q5MIN PRN ANXIETY Morphine Sulfate 4 mg 04/28/25 10:57 Morphine Sulf Inj 10 Mg/Ml Vial IVP 05/03/25 10:56 Q4HR PRN PAIN Ondansetron HCl 4 mg 04/28/25 10:57 Ondansetron Inj 2 Mg/Ml Inj 2 Ml IVP 05/28/25 10:56 Q6HR PRN NAUSEA OR VOMITING Sennosides 1 tab 04/27/25 09:00 04/27/25 08:22 Senna Tablet PO 05/27/25 08:59 1 tab QDAY ELI Administration Protocol Plan Assessment and plan: Summary: Ms. 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 Patient admitted for further management of left hip fracture. #Left subcapital femoral neck fracture status post Femur neck system implant, two hole plate, synthes implant 04/28 #Ground-level mechanical fall Patient reports she was walking outside on gravel when her large dog ran between her legs causing her to lose balance and fall onto her left side. Patient denies any dizziness, weakness, loss of consciousness and head trauma. Complains of left hip pain, Pelvis CT shows complex left hip fracture, left subcapital but also involving lower femoral neck and partly intertrochanteric. Hip and pelvis x-ray shows acute left subcapital hip fracture. RCRI score 1 point, chest x-ray findings show pulmonary vascularity redistribution, 6% risk of major cardiac event. METs greater than 4. Plan: - Pain management, Tylenol/[place]/Dilaudid as needed for pain - Consulted orthopedics, appreciate recommendations - Cardiology consulted for cardiac clearance, low risk for surgery - Zofran as needed for nausea/vomiting - Follow CBC CMP in a.m. - Referred to physical therapy. #Hypertension #Hyperlipidemia #Mild to moderate mitral valve/aortic valve regurgitation Per chart review patient with history of hypertension hyperlipidemia, not on any medication for management. Follows Dr Brett Pereyra. Cardiac Cath. report from January 2023 shows minimal plaque of 10 to 20% stenosis in proximal RCA. Left ventricular ejection fraction EF 60 to 65%, mild elevation of LVEDP TSH 1.86, cholesterol 92, LDL 18, HDL 60 A1c 5.2 Echocardiogram 04/26 showed Aortic root is normal in dimension. Aortic valve show evidence of mild calcification thickening normal excursions. There is evidence of mild aortic valve regurgitation. Mild enlargement of the right and left atrium. Normal-sized left ventricle with excellent left ventricular systolic function ejection fraction of 60%. Mild mitral regurgitation. Mild tricuspid regurgitation normal PA pressure. Plan: - Maintain adequate pain control - Cardiology consulted, appreciate recommendations # Chronic neuropathic pain Patient reports taking gabapentin 600 mg every at night, pending med reconciliation - Continue gabapentin 600 mg at bedtime #Prominent osteopenia Noted on CT pelvis, patient will likely supplement from calcium and vitamin D supplementation. Will consider discharging patient on same, recommend DEXA scan outpatient and bisphosphonates. DVT prophylaxis: None GI prophylaxis: Not indicated Diet: Regular, vegetarian Lines: Peripheral IV Code status: Full code Case discussed with Attending Dr. Bansal. Rigoberto Huggins PGY1 Disclaimer: This note was dictated by speech recognition. Minor errors in box strapper may be present due to voice recognition software.
--- NOTE | 2025-04-28 14:52 | PC.SS ---
Rounding note: surgery today with Dr. Brown. Pending PT evaluation. D/c plan is SNF.
[2025-04-28] MEDS: GABAPENTIN 300 MG CAPSULE 600 MG PO (20:58)
[2025-04-29] VITALS (12 sets, daily range): BP systolic 109–151; BP diastolic 51–94; PULSE 53–97; RESP 16–98; TEMP 36.2–36.5; O2SAT 97–99; BMI 12.0
--- NOTE | 2025-04-29 02:50 | ESPR_ITS ---
RE: SUDHIR NIELSON : 1935 DATE OF SERVICE: 04/28/2025 The patient is an 89-year-old lady known to me with a history of valvular heart disease and hypertension, admitted to the hospital _ intraoperative. Apparently, she had atrial fibrillation, rapid rate and also some irregular beats, PVCs 130 heart rate. She has settled down now. She has not had any further episodes. Possibly due to postop arrhythmia. Spoke to anesthesiologist. The patient did get a small dose of metoprolol and heart rate controlled. Blood pressure is now controlled well, feeling quite well this afternoon post anesthesia. PHYSICAL EXAMINATION: Vital Signs: Blood pressure 110/60. Pulse rate is 70, normal sinus rhythm. Head: Atraumatic. Neck: Supple. No JVD. Lungs: Clear. No rales or rhonchi. Heart: Heart sounds irregular. S4 gallop heard. Abdomen: Thin and soft. Extremities: No edema. IMPRESSION/ASSESSMENT: 1. The patient is status post fracture of the hip, surgical intervention. 2. Cardiac arrhythmia, brief episode of atrial fibrillation, rapid rate, controlled well . RECOMMENDATIONS: Continue to monitor any further arrhythmia. Give low-dose beta blockers as tolerated to control the heart rate. The patient has a history of valvular heart disease including mitral and aortic valve regurgitation that could have caused arrhythmias. For now, I attribute this to postop arrhythmia, do not need to treat specifically for now. DT: 23:39:22 TT: 00:39:00 Ref: [id number] - TID: [id number] [facility]
[2025-04-29 06:00] LABS: Basophils % (Auto) 0 % (0-2.5); Eosinophils % (Auto) 0 % (0-10); Hematocrit 34.3 % (36.0-46.0); Hemoglobin 11.8 g/dL (12.0-16.0); Immature Granulocytes % (Auto) 1 % (0-0); Immature Granulocytes Auto 0.06 Thou/mm3 (0.00-0.00); Lymphocytes # (Auto) 0.8 Thou/mm3 (1.0-4.8); Lymphocytes % (Auto) 7 % (10-50); Mean Corpuscular HGB Conc 34.4 g/dl (31.0-37.0); Mean Corpuscular Hemoglobin 28.5 pg (25.0-35.0); Mean Corpuscular Volume 83 fL (80-100); Monocytes # (Auto) 0.7 Thou/mm3 (0.0-0.8); Monocytes % (Auto) 6 % (0-12); Neutrophils # (Auto) 10.4 Thou/mm3 (1.8-7.7); Neutrophils % (Auto) 87 % (37-80); Nucleated Red Blood Cell % 0 /100 WBC (0); Platelet Count 115 Thou/mm3 (140-440); RDW Standard Deviation 39.7 fL (36.4-46.3); Red Blood Count 4.14 Miln/mm3 (4.00-5.20); White Blood Count 11.9 Thou/mm3 (3.6-11.0)
[2025-04-29 06:27] LABS: Anion Gap 10 (7-16); BUN/Creatinine Ratio 24 Ratio (12-20); Blood Urea Nitrogen 19 mg/dL (9-23); Calcium 8.9 mg/dL (8.3-10.6); Carbon Dioxide 28.2 mMol/L (20.0-31.0); Chloride 100 mMol/L (98-107); Creatinine (Component) 0.8 mg/dL (0.6-1.3); Estimated Creatinine Clearance 40.7 mL/min (>60); Glucose 122 mg/dL (74-106); Magnesium 2.4 mg/dL (1.6-2.6); Osmolality,Calculated 278 (275-295); Phosphorous 2.8 mg/dL (2.4-5.1); Potassium 4.8 mMol/L (3.4-5.1); Sodium 138 mMol/L (136-145); eGFR > 60 See Note
[2025-04-29] MEDS: MORPHINE SULF INJ 10 MG/ML VIAL 4 MG IVP ×3 (06:27→20:30)
[2025-04-29] MEDS: SENNA TABLET 1 TAB PO (08:41)
[2025-04-29] MEDS: ASPIRIN EC 81 MG TABEC PO ×2 (10:47→20:23)
--- NOTE | 2025-04-29 11:40 | ESPR_ITS ---
<Statement entered by Verona Bansal MD - 05/11/25 08:54> I reviewed above note and agree with findings and plans. I have also personally examined the patient with medicine team and went over assessment and plan with medical team including research program intern and resident physician. Documentation for date of: 04/29/25 Subjective Subjective Interval history: No acute overnight events reported. Pt is seen and examined at bedside. Pt is getting ready for PT, she states she continues to have pain in her HIP, she is POD1. as per ortho recs will continue morphine for now and will hold off the oral pain meds. Pt states the norco 5 didn't help with her pain at all. vitals are stable, labs are review. As per ortho recs will start DVT prophylaxis with Aspirin 81mg BID. Exam Vital Signs Temp Pulse Resp BP Pulse Ox O2 Del Method O2 Flow Rate 97.2 F 61 18 128/57 L 97 Room Air 2 04/29/25 08:00 04/29/25 08:00 04/29/25 08:00 04/29/25 08:00 04/29/25 08:00 04/29/25 08:00 04/29/25 00:00 Narrative Exam GENERAL: A&Ox3,elderly female, Awake,cooperative and not in acute distress NEURO: no focal neurological deficits noted HEENT: Atraumatic, Normocephalic. mucous membranes moist. Eyes open, symmetrical, & clear HEART: Normal Heart Sounds LUNGS: Clear to auscultation with no wheezing or crackles. ABDOMEN: soft, non-distended, non-tender, bowel sounds heard, no guarding or rebound tenderness SKIN: No Rash or ecchymoses EXTREMITIES: No edema, tenderness, able to move all 4 extremities, pedal pulses palpated, incision site on left is clean and dry Objective Labs 04/29/25 05:34 04/29/25 05:34 Labs: Laboratory Results - last 24 hr 04/29/25 05:34 WBC 11.9 H RBC 4.14 Hgb 11.8 L Hct 34.3 L MCV 83 MCH 28.5 MCHC 34.4 RDW Std Deviation 39.7 Plt Count 115 L Neut % (Auto) 87 H Lymph % (Auto) 7 L Morrill % (Auto) 6 Eos % (Auto) 0 Baso % (Auto) 0 Neut # (Auto) 10.4 H Lymph # (Auto) 0.8 L Morrill # (Auto) 0.7 Eos # (Auto) 0.0 Baso # (Auto) 0.0 Immature Gran # (Auto) 0.06 H Absolute Nucleated RBC 0.00 Immature Gran % 1 H Nucleated RBC % 0 Sodium 138 Potassium 4.8 D Chloride 100 Carbon Dioxide 28.2 Anion Gap 10 BUN 19 Creatinine 0.8 Estim Creat Clear Calc 40.7 L eGFR > 60 BUN/Creatinine Ratio 24 H Glucose 122 H Calculated Osmolality 278 Calcium 8.9 Phosphorus 2.8 Magnesium 2.4 Quality Measures Quality Measures none Advance care planning discussed with:: patient Assessment & Plan Assessment Current Active Medications: Generic Name Dose Route Start Last Admin Trade Name Freq PRN Reason Stop Dose Admin Acetaminophen 650 mg 04/26/25 11:40 Acetaminophen 325 Mg Tablet PO 05/26/25 11:39 Q6H PRN Pain (1-3) & Fever >100.4 Hydrocodone Bitart/Acetaminophen 1 tab 04/26/25 11:40 04/27/25 13:30 Hydrocodone/Apap 5/325 Tablet PO 05/01/25 11:39 1 tab Q4HR PRN Administration PAIN SCALE 4-6 (Moderate Aspirin 81 mg 04/29/25 09:30 04/29/25 10:47 Aspirin Ec 81 Mg Tabec PO 05/29/25 09:29 81 mg BID LEI Administration Gabapentin 600 mg 04/27/25 21:00 04/28/25 20:58 Gabapentin 300 Mg Capsule PO 05/27/25 20:59 600 mg HS ELI Administration Hydromorphone HCl 0.5 mg 04/26/25 11:40 04/28/25 06:17 Hydromorphone Inj 2 Mg/Ml Vial IVP 05/01/25 11:39 0.5 mg Q4H PRN Administration PAIN SCALE 7-10 (Severe Morphine Sulfate 4 mg 04/28/25 10:57 04/29/25 10:45 Morphine Sulf Inj 10 Mg/Ml Vial IVP 05/03/25 10:56 4 mg Q4HR PRN Administration PAIN Ondansetron HCl 4 mg 04/28/25 10:57 Ondansetron Inj 2 Mg/Ml Inj 2 Ml IVP 05/28/25 10:56 Q6HR PRN NAUSEA OR VOMITING Sennosides 1 tab 04/27/25 09:00 04/29/25 08:41 Senna Tablet PO 05/27/25 08:59 1 tab QDAY ELI Administration Protocol Plan Ms. Mcdaniel is a 89-year-old female with past medical history of hypertension, hyperlipidemia, mild to moderate mitral valve and aortic valve regurgitation (follows Dr Brett Pereyra) and neuropathic pain who presented to [facility] emergency department with a chief complaint of mechanical fall. Patient admitted for further management of left hip fracture. #Left subcapital femoral neck fracture s/p Femur neck system implant, two hole plate, synthes implant 04/28- POD1 #Ground-level mechanical fall Patient reports she was walking outside on gravel when her large dog ran between her legs causing her to lose balance and fall onto her left side. Patient denies any dizziness, weakness, loss of consciousness and head trauma. Complains of left hip pain, Pelvis CT shows complex left hip fracture, left subcapital but also involving lower femoral neck and partly intertrochanteric. Hip and pelvis x-ray shows acute left subcapital hip fracture. RCRI score 1 point, chest x-ray findings show pulmonary vascularity redistribution, 6% risk of major cardiac event. METs greater than 4. Plan: - Pain management,Morphine as needed for pain - Consulted orthopedics, appreciate recommendations - Cardiology consulted for cardiac clearance, low risk for surgery - Zofran as needed for nausea/vomiting - Follow CBC CMP in a.m. - Referred to physical therapy - DVT prophylaxis with Aspirin 81BID #Cardiac arrhythmia -Pt had a brief episode of atrial fibrillation with rapid rate, pt is rate control, due to pt's soft blood pressure unable to start beta lien, however Pt has remained rate controlled. -Will discuss with cardio regarding starting pt on eliquis 2.5BID as pt's CHADsVASc score is 4 #Hypertension #Hyperlipidemia #Mild to moderate mitral valve/aortic valve regurgitation Per chart review patient with history of hypertension hyperlipidemia, not on any medication for management. Follows Dr Brett Pereyra. Cardiac Cath. report from January 2023 shows minimal plaque of 10 to 20% stenosis in proximal RCA. Left ventricular ejection fraction EF 60 to 65%, mild elevation of LVEDP TSH 1.86, cholesterol 92, LDL 18, HDL 60 A1c 5.2 Echocardiogram 04/26 showed Aortic root is normal in dimension. Aortic valve show evidence of mild calcification thickening normal excursions. There is evidence of mild aortic valve regurgitation. Mild enlargement of the right and left atrium. Normal-sized left ventricle with excellent left ventricular systolic function ejection fraction of 60%. Mild mitral regurgitation. Mild tricuspid regurgitation normal PA pressure. Plan: - Maintain adequate pain control - Cardiology consulted, appreciate recommendations # Chronic neuropathic pain Patient reports taking gabapentin 600 mg every at night, pending med reconciliation - Continue gabapentin 600 mg at bedtime #Prominent osteopenia Noted on CT pelvis, patient will likely supplement from calcium and vitamin D supplementation. Will consider discharging patient on same, recommend DEXA scan outpatient and bisphosphonates. DVT prophylaxis: None GI prophylaxis: Not indicated Diet: Regular, vegetarian Lines: Peripheral IV Code status: Full code Assessment and plan discussed with my attending physician Dr. Rolf Foster (PGY-1)- Internal medicine resident
[2025-04-29] MEDS: GLYCERIN, ADULT 1 EA SUPP 1 EACH PR (12:00)
--- NOTE | 2025-04-29 12:45 | PC.SS ---
Addendum entered by KIERAN Vincent 04/29/25 14:21: Rounding note: anticipate d/c in the next 24hrs. Original Note: SS follow up: [facility] [place]. Patient and family indicate this is their first choice and would like response from facility before they indicate a second choice in facility.
--- NOTE | 2025-04-29 15:02 | PC.NURSE ---
Pt received suppository results of loose BM x1. Has pending order for mineral oil enema, per MD mccarthy to hold at this time.
[2025-04-29] MEDS: GABAPENTIN 300 MG CAPSULE 600 MG PO (20:23)
[2025-04-30] VITALS: BP 119/60; PULSE 54; PULSE 89; RESP 17; TEMP 36.2; O2SAT 98
--- NOTE | 2025-04-30 00:28 | ESPR_ITS ---
RE: SUDHIR MCDANIEL : 1935 DATE OF SERVICE: 04/29/2025 SUBJECTIVE: Sudhir Mcdaniel is doing better today, it is postop day 2 following hip surgery. The patient had atrial arrhythmias yesterday, atrial fibrillation, but now appears to be in good rhythm, not having chest pain or shortness of breath. OBJECTIVE: Vital Signs: Blood pressure 120/60, pulse rate is 53. Regular sinus rhythm. Respirations 18. Temperature normal. Neck: Supple. No JVD. Lungs: Decreased breath sounds. No rales. Heart: S1 and S2 regular. Abdomen: Thin and soft. Extremities: No edema. Neurologic: Normal. ASSESSMENT: 1. Postoperative arrhythmia, cardiac arrhythmias including atrial fibrillation, RVR, resolved completely. 2. History of valvular heart disease. 3. Fracture of the hip, underwent surgery. RECOMMENDATIONS: Continue to monitor for any arrhythmias. Appears to be quite stable. Cardiovascular key, she is stable to be discharged to custodial facility whenever that is possible. DT: 21:43:29 TT: 23:19:00 Ref: [id number] - TID: [id number]
[2025-04-30 04:00] VITALS: BP 118/63; PULSE 57; PULSE 60; RESP 15; TEMP 36.3; O2SAT 99
[2025-04-30 05:55] LABS: Basophils % (Auto) 0 % (0-2.5); Eosinophils # (Auto) 0.3 Thou/mm3 (0.0-0.5); Eosinophils % (Auto) 3 % (0-10); Hematocrit 33.3 % (36.0-46.0); Immature Granulocytes % (Auto) 0 % (0-0); Immature Granulocytes Auto 0.03 Thou/mm3 (0.00-0.00); Lymphocytes % (Auto) 21 % (10-50); Mean Corpuscular Hemoglobin 28.6 pg (25.0-35.0); Mean Corpuscular Volume 87 fL (80-100); Monocytes # (Auto) 0.8 Thou/mm3 (0.0-0.8); Monocytes % (Auto) 8 % (0-12); Neutrophils # (Auto) 6.6 Thou/mm3 (1.8-7.7); Neutrophils % (Auto) 67 % (37-80); Nucleated Red Blood Cell % 0 /100 WBC (0); Platelet Count 147 Thou/mm3 (140-440); Red Blood Count 3.85 Miln/mm3 (4.00-5.20); White Blood Count 9.8 Thou/mm3 (3.6-11.0)
[2025-04-30 06:11] LABS: Anion Gap 9 (7-16); BUN/Creatinine Ratio 23 Ratio (12-20); Blood Urea Nitrogen 21 mg/dL (9-23); Calcium 8.6 mg/dL (8.3-10.6); Carbon Dioxide 29.2 mMol/L (20.0-31.0); Chloride 100 mMol/L (98-107); Creatinine (Component) 0.9 mg/dL (0.6-1.3); Estimated Creatinine Clearance 36.1 mL/min (>60); Glucose 94 mg/dL (74-106); Osmolality,Calculated 278 (275-295); Potassium 4.7 mMol/L (3.4-5.1); Sodium 138 mMol/L (136-145); eGFR > 60 See Note
[2025-04-30 07:31] VITALS: PULSE 18; RESP 99
[2025-04-30 08:00] VITALS: BP 120/53; PULSE 73; RESP 18; TEMP 36.8; O2SAT 99
[2025-04-30] MEDS: SENNA TABLET 1 TAB PO (08:58)
[2025-04-30] MEDS: ASPIRIN EC 81 MG TABEC PO (08:58)
[2025-04-30] MEDS: HYDROcodone/APAP 5/325 TABLET 1 TAB PO ×2 (09:01→15:42)
--- NOTE | 2025-04-30 09:07 | PC.SS ---
Follow up note: Pending Dr. Brown's recommendations. Pt is d/c to SNF.
[2025-04-30 10:44] VITALS: BMI 12.0; BMI 14.0
--- NOTE | 2025-04-30 10:47 | PC.SS ---
Addendum entered by Vivian Hernandez 04/30/25 12:20: SS received call from dtr, Marisela who has requested pt d/c to [place]. SS has spoken to Charo from [facility] and she has accepted pt. Original Note: SS received call from patient's dtr, Marisela [phone] to provide her with verbal choices of placement. Dtr is requesting [facility]. SS has informed dtr, [facility] is still considering, per PT note pt is maximum assist, unable to ambulate, and pt requires to participate in intese PT for 3 hours 5 days. Dtr is intrested in [place]. [facility] [place] [address] Acute Rehab Yes 04/27/2025 11:04 04/27/2025 11:04 We can accept this patient. Thank you for your referral ?(1) [facility][note 3] Rehabilitation [address] [place] [address] [facility] Facility [phone] 04/29/2025 13:01 04/27/2025 11:04 We can accept this patient. Thank you for your referral ?(6) [address] [place] [id number] Acute Rehab Yes 04/29/2025 09:06 04/27/2025 11:04 We can accept this patient. Thank you for your referral ?(6) [facility] [place], [place] [phone] [facility] Facility Yes 04/29/2025 12:52 04/27/2025 11:04 We can accept this patient. Thank you for your referral ?(3) [facility] [place], [place] [id number] [facility] Facility Yes 04/29/2025 13:01 04/27/2025 11:04 We can accept this patient. Thank you for your referral ?(3) [facility] [place] [address] Acute Rehab Considering 04/29/2025 16:00 04/27/2025 11:04 Other ?(9) [facility] [address] [place], [place] [id number] [facility] Facility Yes 04/29/2025 12:52 04/27/2025 11:04 We can accept this patient. Thank you for your referral ?(2) [facility] [address] [place], [place] [id number] Acute Rehab Yes 04/27/2025 14:28 04/27/2025 11:04 We can accept this patient. Thank you for your referral ?(2) [facility] [place] [phone] [facility] Facility Yes 04/29/2025 13:00 04/27/2025 11:04 We can accept this patient. Thank you for your referral ?(3) [facility] [place], [place] [phone] Ch[facility] Facility [facility] [place], [place] [phone] [facility] Facility Yes 04/29/2025 12:54 04/27/2025 11:04 We can accept this patient. Thank you for your referral ?(4) [facility] [address] [place], [place] [phone] [facility] Facility Yes 04/27/2025 11:04 04/27/2025 11:04 We can accept this patient. Thank you for your referral ?(2) [facility] [place] [address] [facility] Facility No 04/27/2025 11:47 04/27/2025 11:04 No bed available ?(1) [facility] [place] [id number] [place], [place] [phone] [facility] Facility Yes 04/27/2025 13:19 04/27/2025 11:04 We can accept this patient. Thank you for your referral ?(2) [facility] [address] [place], [place] [phone] [facility] Facility Considering 04/27/2025 11:09 04/27/2025 11:04 Verifying insurance ?(1) [facility] [place] [address] Chcf Facility Yes 04/29/2025 13:20 04/27/2025 11:04 We can accept this patient. Thank you for your referral ?(3) [facility] [address] [place], [place] [phone] [facility] Facility Yes 04/27/2025 11:14 04/27/2025 11:04 We can accept this patient. Thank you for your referral ?(1) [facility] [place], [place] [phone] [facility] Facility Yes 04/27/2025 11:38 04/27/2025 11:04 We can accept this patient. Thank you for your referral ?(2) [facility] [address] [place], [place] [phone] [facility] Facility Yes 04/29/2025 13:22 04/27/2025 11:04 We can accept this patient. Thank you for your referral ?(3) [facility] [address] [place] [address] [facility] Facility Yes [facility] [place], [place] [phone] [facility] Facility Yes 04/27/2025 11:09 04/27/2025 11:04 We can accept this patient. Thank you for your referral ?(2) [facility] [place], [place] [phone] Chcf Facility Yes 04/27/2025 11:16 04/27/2025 11:04 We can accept this patient. Thank you for your referral ?(2) [facility] [address] [place] [phone] Chcf Facility No 04/29/2025 13:09 04/27/2025 11:04 Insurance out of network ?(4) [facility] [place], [place] [phone] [facility] Facility Yes 04/29/2025 13:00 04/27/2025 11:04 We can accept this patient. Thank you for your referral ?(3) [facility] [address] [place] [address] Chcf Facility 04/27/2025 11:04 ?(1)
[2025-04-30 12:00] VITALS: BP 108/60; PULSE 78; RESP 19; TEMP 36.4; O2SAT 90
--- NOTE | 2025-04-30 13:36 | ESDS_ITS ---
Planned Discharge Date 04/30/25 DS: Providers Provider Date of admission: 04/26/25 11:40 Primary care physician: Omar Yang MD Admitting Provider: Deb Ordoñez MD Attending Provider on Admission: Verona Bansal MD Consults: 04/26/25 10:59 Consult to Orthopedic Stat Comment: Consulting Provider: Morales Anders 04/26/25 11:45 Consult to Cardiology Routine Comment: Cardiac Clearance Consulting Provider: Brett Pereyra 04/26/25 16:37 Health Equity Referral - Knowledge Deficit Routine Comment: Positive screening for knowledge deficit needs. 04/28/25 10:57 Referral Physical Therapy Routine Comment: Gait Training. both legs full weight bear Physician Instructions: Attending Provider on DC: Justin Matias MD Discharging Provider: Justin Matias MD Anticipated date of discharge: 04/30/25 DS: Diagnosis Problem List Completed Was Problem List Reviewed/Reconciled?: Yes Hospital Course Hospital Course Hospital course: Hospital course: Ms. 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 Patient CT scan of pelvis showed left hip fracture, left subcapital involving femoral neck, poorly intertrochanteric. Hip and pelvis x- ray showed acute left subcapital hip fracture. Cardiology was consulted for preop clearance, patient eventually went to the OR and femoral neck system implant, postop patient had physical therapy, was started on anticoagulation. Patient did have a brief episode of A-fib with RVR, however transition to sinus rhythm. Cardiology was following, recommended no new medications, close follow- up outpatient. Further plan is to discharge patient to longterm facility and follow-up with primary care physician in 1 week. Patient to follow-up with orthopedic surgeon Dr. Anders in 2 weeks, patient to continue aspirin for DVT prophylaxis for 13 days. Patient to continue all other home medications. P atient is stable for discharge, responded well to hospital treatment. Discharge diagnosis: #Left subcapital femoral neck fracture s/p Femur neck system implant, two hole plate, synthes implant 04/28 #Ground-level mechanical fall #Cardiac arrhythmia, resolved #Hypertension #Hyperlipidemia #Mild to moderate mitral valve/aortic valve regurgitation #Chronic neuropathic pain #Prominent osteopenia Case discussed with Attending Dr. Matias. Keith Foster PGY1 Status at Discharge Overall status at discharge: patient is progressing back to baseline Time Spent with Patient Time attestation: Total time spent providing and/or coordinating discharge services: Time spent: Greater than 30 minutes Exam Vital Signs Temp Pulse Resp BP Pulse Ox O2 Del Method O2 Flow Rate 97.5 F 78 19 108/60 90 L Room Air 2 04/30/25 12:00 04/30/25 12:00 04/30/25 12:00 04/30/25 12:00 04/30/25 12:00 04/30/25 12:00 04/30/25 07:31 FiO2 70 04/30/25 07:31 Narrative Exam GENERAL: A&Ox3,elderly female, Awake,cooperative and not in acute distress NEURO: no focal neurological deficits noted HEENT: Atraumatic, Normocephalic. mucous membranes moist. Eyes open, symmetrical, & clear HEART: Normal Heart Sounds LUNGS: Clear to auscultation with no wheezing or crackles. ABDOMEN: soft, non-distended, non-tender, bowel sounds heard, no guarding or rebound tenderness SKIN: No Rash or ecchymoses EXTREMITIES: No edema, tenderness, able to move all 4 extremities, pedal pulses palpated, incision site on left is clean and dry Discharge Plan Plan Patient Disposition: Xfer Skilled Nsg Fac (SNF) Patient condition on transfer: Stable Care Plan Goals: -Follow up with PCP within 1 week of discharge -Follow up with Orthopedic Surgeon Dr. Anders within 2 weeks -You have been prescribed Aspirin twice daily for DVT prophylaxis, please take it for additional 13 days -Continue rest of medications as previously prescribed -Return to the ED or call EMS if symptoms return and/or worsen Prescriptions/Referrals Prescriptions/Med Rec: New hydrocodone-acetaminophen 5-325 mg Tablet 1 tab PO Q6H MDD 3 PRN (Reason: Pain Scale 4-10 (Moderate) 5 Days Qty: 15 0RF aspirin 81 mg Tablet,Delayed Release (Dr/Ec) 81 mg PO BID 13 Days Qty: 26 0RF Continued gabapentin 300 mg Tablet Extended Release 24 Hr 600 mg PO QPM Lolly-Sherlyn 0.8 mg tablet 1 tab PO QDAY Patient Comments: TAKE 1 TABLET BY MOUTH EVERY DAY Referrals: Omar Yang MD [Primary Care Provider] - Morales Anders MD [Physician] - Patient/Caregiver Discharge Instructions Education Materials: After a Hip Fracture: Common Questions Print Language: Chinese Stand Alone Forms: Mari Award Info., Patient Portal Info Letter Discharge Order Discharge Orders: Discharge (Routine); Ordered 04/30/25 Ordered By: Keith Foster Quality Discharge Quality Measures VTE prophylaxis MD Attestestation MD Attestation Face to face evaluation was performed by me. I have personally seen and examined the patient. I discussed the assessment and plan with the entire medicine team. I reviewed available medical records, imaging studies, laboratory results. I agree with the above subjective data, objective findings, assessment and plan except as corrected by me or noted below Left femoral hip fracture Ground-level fall Left hip pain due to above plan to discharge to longterm facility for rehabilitation, orthopedic discharge. Mr. Melendez 80 prophylaxis baby aspirin 2 times a day results in 2 weeks 2035 More than > 30 minutes spent on the encounter
--- NOTE | 2025-04-30 14:52 | PC.SS ---
Addendum entered by Vivian Hernandez 04/30/25 15:36: SS received call from Brennon at [facility] who explained they are unable to strip picker pt due to not having drivers. Pt and dtr are unable to pay privately for ambulance transport. has sent signed TAMI, ambulance form, and patient's facesheet to [facility] using [employer]. has setup gurney transportation with Linda at [facility] for 6pm to [place]. Bedside nurseVeda is aware. Pt and dtr are aware. Charo from [employer] is aware. Original Note: has called [employer] and spoke to who explained she has contacted the Eligibility Department and they are not the transportation vendor. Pt and dtr are aware. Pt does not have Medical to cover transportation. Pt is requiring gurney transportation. has called Brennon from [employer], phone#[phone] and the thomas for transport is $[address] [place]. Pt and dtr are aware and agreeable to pay. Dtr has paid privately for transportation with [employer] [facility]. Per Brennon, transportation will be arranged for 6pm to [place]. Bedside nurseVeda is aware to have pt ready by 5pm. Sophie SHIN is aware. Charo from [employer] is aware. PASRR has been sent to [employer] through file exchange.
--- NOTE | 2025-04-30 15:37 | PC.NURSE ---
gave report to [facility]
[2025-04-30 15:59] VITALS: BP 96/63; PULSE 77; RESP 17; TEMP 36.1; O2SAT 97
== END 2025-04-30 18:15 | disposition skilled nursing facility (03) | DRG 482 ==
LOC: SERX 11:05 → SERHOLD 11:50 → S3NX 15:33
PROVIDERS: Orthopaedic Surgery; Admitting Provider Student in an Organized Health Care Education/Training Program; Emergency Provider Family Medicine; PCP Family Medicine; Visit Provider Internal Medicine
PROC: 0QH704Z Insertion of Internal Fixation Device into Left Upper Femur, Open Approach (ICD-10-PCS; principal; 2025-04-28 07:30)
DX: S72.012A Unspecified intracapsular fracture of left femur, initial encounter for closed fracture (principal); S72.142A Displaced intertrochanteric fracture of left femur, initial encounter for closed fracture; I10 Essential (primary) hypertension; E78.5 Hyperlipidemia, unspecified; I08.0 Rheumatic disorders of both mitral and aortic valves; M85.80 Other specified disorders of bone density and structure, unspecified site; I48.91 Unspecified atrial fibrillation; I49.3 Ventricular premature depolarization; Z79.899 Other long term (current) drug therapy; W01.0XXA Fall on same level from slipping, tripping and stumbling without subsequent striking against object, initial encounter; Z88.0 Allergy status to penicillin
CPT/HCPCS: 36415; 71045; 72192; 73502; 76000; 80048; 80053; 80061; 81001; 83036; 83735; 84100; 84443; 84484; 85025; 85610; 85730; 86850; 86900; 86901; 86923; 87081; 93005; 93225; 93306; 94762; 96372; 96374; 96375; 96376; 99285; A4217; A4649; C1713; C1769; J0131; J1100; J1171; J1580; J1644; J2270; J2371; J2405; J2704; J2765; J2795; J3010; J3371; J3475; J3490; J7030; A9270

== ENCOUNTER → 2025-06-02 | Outpatient (CLI) | payer MEDICARE, BC, SELFPAY ==
--- NOTE | 2025-06-02 10:43 | XR_ITS ---
Examination:Left hip AP, lateral, AP pelvis 3 views Technique: Hip AP lateral, AP pelvis, 3 views Exam date and time:June 02, 2025 1043 hours INDICATIONS: History left hip surgery for acute subcapital hip fracture April 26, 2025 FINDINGS: Healed left subcapital hip fracture Orthopedic hardware satisfactory position Bilateral advanced narrowing hip joints Bones of the pelvis intact IMPRESSION: Healed left hip fracture with satisfactory alignment.
[2025-06-02 11:58] LABS: Albumin, Serum 4.1 gm/dL (3.4-4.8); Anion Gap 8 (7-16); BUN/Creatinine Ratio 11 Ratio (12-20); Blood Urea Nitrogen 11 mg/dL (9-23); Calcium 9.1 mg/dL (8.3-10.6); Calcium (Corrected) 9.1 mg/dL (8.5-10.1); Carbon Dioxide 27.9 mMol/L (20.0-31.0); Chloride 102 mMol/L (98-107); Creatinine (Component) 1.0 mg/dL (0.6-1.3); Glucose 108 mg/dL (74-106); Osmolality,Calculated 276 (275-295); Phosphorous 3.0 mg/dL (2.4-5.1); Potassium 4.4 mMol/L (3.4-5.1); Sodium 138 mMol/L (136-145); eGFR 54 See Note
[2025-06-02 12:02] LABS: Vitamin D 25 Hydroxy Total 40.6 ng/mL (7.3-40.2)
== END | disposition home or self-care (01) ==
LOC: CDIM 10:25 → COPL 11:10
PROVIDERS: PCP Registered Nurse; Referring Provider Orthopaedic Surgery; Visit Provider Orthopaedic Surgery
DX: S72.002D Fracture of unspecified part of neck of left femur, subsequent encounter for closed fracture with routine healing (principal); X58.XXXD Exposure to other specified factors, subsequent encounter; I12.9 Hypertensive chronic kidney disease with stage 1 through stage 4 chronic kidney disease, or unspecified chronic kidney disease; N18.31 Chronic kidney disease, stage 3a
CPT/HCPCS: 36415; 73502; 80069; 82306

== ENCOUNTER → 2025-07-27 | Outpatient (CLI) | payer MEDICARE, BC, SELFPAY ==
--- NOTE | 2025-07-27 12:09 | XR_ITS ---
Examination:Left hip AP, lateral, AP pelvis 3 views Technique: Hip AP lateral, AP pelvis, 3 views Exam date and time:July 27, 2025 1219 hours, comparison June 02, 2025 INDICATIONS: Left hip pain months, operative reduction left hip April 2025 FINDINGS: Healed left hip fracture. Prominent osteopenia. Severe bilateral hip osteoarthritis. Bones of the pelvis intact IMPRESSION: Severe bilateral hip osteoarthritis.
== END | disposition home or self-care (01) ==
PROVIDERS: PCP Family Medicine; Referring Provider Orthopaedic Surgery; Visit Provider Orthopaedic Surgery
DX: M16.0 Bilateral primary osteoarthritis of hip (principal)
CPT/HCPCS: 73502